=== PATIENT | female | born 1985 | race Caucasian/White ===

== ENCOUNTER → 2022-02-13 | Outpatient (CLI) | payer OTHER, SELFPAY ==
[2022-02-13 17:43] LABS: Protein, Urine (Random) < 6.0 mg/dL (<11.9)
[2022-02-13 18:00] LABS: Amphetamine Urine VISTA NEGATIVE (<1000 ng/mL); Barbiturate Urine VISTA NEGATIVE (< 200 ng/mL); Benzodiazepine Urine VISTA NEGATIVE (< 200 ng/mL); Cocaine Urine VISTA NEGATIVE (< 300 ng/mL); Ecstacy Urine VISTA NEGATIVE (< 500 ng/mL); Methadone Urine VISTA NEGATIVE (< 300 ng/mL); PCP Urine VISTA NEGATIVE (< 25 ng/mL); THC Urine VISTA NEGATIVE (< 50 ng/mL); Vista UDS pH Range 6
[2022-02-17 01:07] LABS: Chlamydia By Nucleic Acid AMP Negative (Negative)
[2022-02-17 13:28] LABS: Gonococcus By Nucleic Acid AMP Negative (Negative)
== END | disposition home or self-care (01) ==
LOC: LABSPEC 16:52
PROVIDERS: PCP Family Medicine; Referring Provider Obstetrics & Gynecology; Visit Provider Obstetrics & Gynecology
DX: O09.299 Supervision of pregnancy with other poor reproductive or obstetric history, unspecified trimester (principal)
CPT/HCPCS: 80307; 82570; 84156; 87086; 87491; 87591

== ENCOUNTER → 2022-03-03 | Outpatient (CLI) | payer OTHER, SELFPAY ==
[2022-03-03 16:16] LABS: Absolute Lymphocyte Count 2.06 X10^3/uL (0.83-4.51); Basophil# 0.03 X10^3/uL; Basophil% 0.4 % (0-1); Eosinophil# 0.11 X10^3/uL; Eosinophils% 1.4 % (0-5); Hematocrit 36.3 % (37-47); Hemoglobin 12.4 g/dL (12.0-15.0); Lymphocyte # 2.06 X10^3/ul (0.83-4.51); Lymphocyte % 26.6 % (19-41); Mean Corp Hgb Conc 34.2 g/dL (32-36); Mean Corpuscular Hgb 31.3 pg (27.0-32.0); Mean Corpuscular Volume 91.7 fL (81-99); Mean Platelet Vol. 9.7 fl (6.2-12.0); Monocyte% 6.5 % (0-10); NRBC Flagged by Analyzer 0 % (0-5); Neutrophil # 5.02 X10^3/uL (2.7-7.7); Neutrophil % 64.7 % (47-70); Platelet Count 273 K/mm3 (150-450); RBC Distribution Width CV 12.6 % (11.6-14.6); RBC Distribution Width SD 41.7 fl (35.1-43.9); Red Blood Count 3.96 M/mm3 (4.2-5.4); White Blood Count 7.8 K/mm3 (4.4-11.0)
[2022-03-03 17:02] LABS: NATERA MAILED SPECIMEN
[2022-03-03 18:24] LABS: HIV - WCH Non-Reactive (Nonreactive); Hepatitis B Surface Antigen Non-Reactive (Nonreactive); Hepatitis C Antibody Non-Reactive (Nonreactive); Rubella IgG Reactive (Nonreactive); Syphilis Antibodies Non-reactive
== END | disposition home or self-care (01) ==
LOC: PAVLAB 15:51
PROVIDERS: PCP Family Medicine; Referring Provider Obstetrics & Gynecology; Visit Provider Obstetrics & Gynecology
DX: O09.90 Supervision of high risk pregnancy, unspecified, unspecified trimester (principal)
CPT/HCPCS: 36415; 85025; 86703; 86762; 86780; 86803; 86850; 86900; 86901; 87340

== ENCOUNTER → 2022-06-27 | Outpatient (CLI) | payer OTHER, SELFPAY ==
[2022-06-27 15:42] LABS: Absolute Lymphocyte Count 0.86 X10^3/uL (0.83-4.51); Absolute Neutrophil Count 11.6 X10^3/uL (2.0-7.7); Basophil# 0.03 X10^3/uL; Basophil% 0.2 % (0-1); Eosinophil# 0.01 X10^3/uL; Eosinophils% 0.1 % (0-5); Hematocrit 34.2 % (37-47); Hemoglobin 11.2 g/dL (12.0-15.0); Lymphocyte # 0.86 X10^3/ul (0.83-4.51); Lymphocyte % 6.7 % (19-41); Mean Corp Hgb Conc 32.7 g/dL (32-36); Mean Corpuscular Hgb 30.4 pg (27.0-32.0); Mean Corpuscular Volume 92.9 fL (81-99); Mean Platelet Vol. 10.7 fl (6.2-12.0); Monocyte# 0.23 X10^3/uL; Monocyte% 1.8 % (0-10); NRBC Flagged by Analyzer 0 % (0-5); Neutrophil # 11.56 X10^3/uL (2.7-7.7); Platelet Count 250 K/mm3 (150-450); RBC Distribution Width CV 13.2 % (11.6-14.6); RBC Distribution Width SD 45.2 fl (35.1-43.9); Red Blood Count 3.68 M/mm3 (4.2-5.4); White Blood Count 12.8 K/mm3 (4.4-11.0)
[2022-06-27 15:53] LABS: Glucose Challenge Gest 1H 50g 112 mg/dL (70-140)
== END | disposition home or self-care (01) ==
LOC: LAB 14:15
PROVIDERS: Obstetrics & Gynecology; PCP Family Medicine; Referring Provider Obstetrics & Gynecology; Visit Provider Obstetrics & Gynecology
DX: O09.90 Supervision of high risk pregnancy, unspecified, unspecified trimester (principal); Z3A.00 Weeks of gestation of pregnancy not specified
CPT/HCPCS: 36415; 82950; 85025

== ENCOUNTER 2022-08-01 11:40 | Outpatient (CLI) | payer OTHER, SELFPAY ==
[2022-08-01 11:47] VITALS: BMI 26.9
[2022-08-01 12:00] VITALS: TEMP 36.4
[2022-08-01] MEDS: Betamethasone/Betamethasone 30 MG/5 ML Vial 12 MG IM (12:10)
--- NOTE | 2022-08-01 12:19 | US_ITS ---
STUDY: SECOND AND THIRD TRIMESTER OBSTETRICAL ULTRASOUND - LIMITED REASON FOR EXAM: Female, 36 years old hypertension in LMP: Unknown. PRIOR ULTRASOUND: None. TECHNIQUE: Transabdominal TECHNICAL QUALITY: Adequate. FINDINGS: There is a single intrauterine fetus. The fetus is in a cephalic presentation. There is demonstrated cardiac activity with a heart rate of 148 bpm. There is a normal amniotic fluid volume. The largest amniotic fluid pocket measures 6.3 cm. The amniotic fluid index (ANNIKA) is 17.03 cm. The placenta is anterior in location and is not low lying. There are Grade 1 placental changes. The cervix measures 4.1 cm in length. BIOMETRY: BPD: 8.8 cm: 35 weeks, 4 days HC: 31.88 cm: 35 weeks, 6 days AC: 29.99 cm: 34 weeks, 0 days FL: 6.43 cm: 33 weeks, 2 days Age by LMP: 32 weeks, 4 days. NATALEE by LMP: 09/22/2022 age by current US: 34 weeks, 5 days. NATALEE by current US: 09/07/2022. Estimated weight: 2355 grams, +/- 353 grams, 84.75 percentile. US/OB Limited With Biometrics IMPRESSION: Single live intrauterine at 34 weeks, 5 days by current ultrasound with NATALEE of 09/07/2022. Heart rate of 148 bpm. No suspicious sonographic findings Electronically Signed: Bennie Will MD at 13:25 EDT ,
[2022-08-01 12:22] VITALS: BP 138/94; PULSE 86
[2022-08-01 12:34] LABS: Bacteria 0 SEEN /hpf (None Seen); Mucous, Urine 0 SEEN /hpf (<or=2+); Red Blood Cells-Urine 0 SEEN /hpf (0-5); White Blood Cells 0 SEEN /hpf (0-5)
[2022-08-01 12:38] LABS: Hematocrit 36.4 % (37-47); Hemoglobin 11.9 g/dL (12.0-15.0); Mean Corp Hgb Conc 32.7 g/dL (32-36); Mean Corpuscular Hgb 29.9 pg (27.0-32.0); Mean Corpuscular Volume 91.5 fL (81-99); Mean Platelet Vol. 11.1 fl (6.2-12.0); Platelet Count 233 K/mm3 (150-450); RBC Distribution Width CV 13.3 % (11.6-14.6); RBC Distribution Width SD 44.9 fl (35.1-43.9); Red Blood Count 3.98 M/mm3 (4.2-5.4); White Blood Count 11.5 K/mm3 (4.4-11.0)
[2022-08-01 12:47] LABS: Protein, Urine (Random) < 6.0 mg/dL (<11.9); Protein:Creat Ratio 234 mg/g CRE (0-200)
[2022-08-01 12:48] LABS: AST(SGOT) 12 U/L (15-37); Alanine Aminotransfer ALT/SGPT 17 U/L (13-56); Creatinine, Serum 0.63 mg/dL (0.55-1.02); EST Glomerular Filtration Rate 115 mL/min (>60); Est Glom Filt Rate - Afr Amer 139 mL/min (>60); Estimated Creatinine Clearance 122.36 ml/min; Uric Acid 3.8 mg/dL (2.6-6.0)
[2022-08-01 12:50] LABS: Color, Urine Yellow (Yellow); Glucose, Dipstick Normal (Normal); Ketone-Dipstick Negative (Negative); Leukocyte Esterase-Dipstick Negative /ul (Negative); Nitrite-Dipstick Negative (Negative); Occult Blood-Urine Negative /ul (Negative); Protein-Dipstick Negative (Negative); Urine Bilirubin Dipstick Negative (Negative); Urine Clarity Clear (Clear); Urine Urobilinogen Normal (Normal); Urine pH 6.5 (5.0 - 8.0)
[2022-08-01 12:59] LABS: Squamous Epithelial Cells - UA 0-5 SEEN /hpf (5-10)
--- NOTE | 2022-08-01 13:10 | OB.TRI.HP_ITS ---
HPI - General General Date of Admission: 08/01/22 HPI Narrative BURTON BENJAMIN, is a 36 y/o @ 32 weeks who presents to L&D for PIH work up. She states that she feels fuzzy but no visual changes, epigastric pain, shortness of breath or chest pain. She had a home blood pressure read in the severe range and was monitoring due to a history of pre-e at 39 weeks with her first . Maternal Data Information NATALEE Calculator Estimated Delivery Date Method Current WG Current Estimate 09/22/22 LMP (Certain) 32w 4d PFSH [facility] Medical History History of breast lump Home Medications fluticasone propionate 50 mcg/actuation nasal spray,suspension (Flonase Allergy Relief) 1 spray intranasal DAILY 02/12/22 [History Last Taken Unknown] prenat.vits,layton,kyt-dnwb-pukit 1 tab PO DAILY 02/12/22 [History Last Taken Unknown] aspirin 81 mg chewable tablet 81 mg PO DAILY 03/14/22 [History Last Taken Unknown] Allergy/AdvReac Type Severity Reaction Status Date / Time Penicillins Allergy Intermediate hives Verified 08/01/22 12:33 Family History Father CAD (coronary artery disease) Brother Hypercholesterolemia Grandmother Diabetes Breast cancer Heart disease Hypertension Grandmother Breast cancer CML (chronic myelocytic leukemia) Cancer small cell lung CA Mother Colon cancer rectum Rectal cancer Grandfather Alzheimer's dementia Heart disease Surgical History History of removal of skin mole S/P laparoscopic procedure Social History adopted: No household members: spouse number of children: 1 current occupational status: employed 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 Date Name GA/Weeks Outcome Route Bth Weight Gen Labor Lgth Anesthesia Del Locatn Provider FOB Unknown 10/2014 SAB spontaneous Unknown 01/09/2016 Ronda Figueroa live - full term vacuum 7# 8oz Female 15 hr epidural Pomerene Ramirez Scar Figueora Delivery Date: Last Updated by: Coty Pritchard CONSTRUCTION PROJECT ENGINEER, CONSTRUCTION PROJECT ENGINEER-C no intervention Delivery Date: Last Updated by: Coty Pritchard CONSTRUCTION PROJECT ENGINEER, CONSTRUCTION PROJECT ENGINEER-C IOL, episiotomy X 2; Pre E, on mag. Visit Details Expected Delivery Route/Plan Labor Preferences- CB/BF classes: [] labor support person: [] labor intervention preferences: [] pain management options preferred: [] cut cord/dad catch: [] : [] PP control planned: [] discussed possible routes of delivery and associated risks: [] special requests: [] Plans Covid status: discussed Flu vaccine: discussed Tdap vaccine: given Rhogam: na LARC form signed: movement and labor precautions reviewed. Problem list reviewed and updated with the most current plan of care details and appropriate orders placed. Relevant counseling for the gestational age provided. Continue routine care and follow up unless otherwise noted in visit notes/problem list details OB Flowsheet Initial Weight: Not Recorded Date -?-?-?-?-?-?-?-?-?-?-?-?- EGA Weight BP Urine Prot -?-?-?-?-?-?-?-?-?-?-?-?- Glucose FHR FuHt Pres Dilation -?-?-?-?-?-?-?-?-?-?-?-?- Effaced St Visit Note 02/13/22 -?-?-?-?-?-?-?-?-?-?-?-?- 8w 3d 154 lb 130/80 -?-?-?-?-?-?-?-?-?-?-?-?- 160 -?-?-?-?-?-?-?-?-?-?-?-?- JV- CRL consiste nt with LMP 03/14/22 -?-?-?-?-?-?-?-?-?-?-?-?- 12w 4d 155 lb 114/60 Negative -?-?-?-?-?-?-?-?-?-?-?-?- Negative 150 -?-?-?-?-?-?-?-?-?-?-?-?- Sm- no vb crampi ng. 04/11/22 -?-?-?-?-?-?-?-?-?-?-?-?- 16w 4d 154 lb 6 oz 130/88 Nega tive -?-?-?-?-?-?-?-?-?-?-?-?- Negative 150 -?-?-?-?-?-?-?-?-?-?-?-?- JV- pt had covid last couple of weeks 05/16/22 -?-?-?-?-?-?-?-?-?-?-?-?- 21w 4d 160 lb 4 oz 118/79 Nega tive -?-?-?-?-?-?-?-?-?-?-?-?- Negative 145 -?-?-?-?-?-?-?-?-?-?-?-?- JV- no lof, v ag inal bleeding, or cramping. had nose bleed recently and thinks may be from flonase. 06/13/22 -?-?-?-?-?-?-?-?-?-?-?-?- 25w 4d 163 lb 102/66 Negative -?-?-?-?-?-?-?-?-?-?-?-?- Negative 145 -?-?-?-?-?-?-?-?-?-?-?-?- JV- no lof, vagi nal bleeding, or dec fm. no complaints 06/27/22 -?-?-?-?-?-?-?-?-?-?-?-?- 27w 4d 168 lb 132/79 Negative -?-?-?-?-?--?-?-?-?-?-?-?- Negative 145 28 -?-?-?-?-?-?-?-?-?-?-?-?- SM- no vb lof go od fm no regular ctx cbc gct today 07/18/22 -?-?-?-?-?-?-?-?-?-?-?-?- 30w 4d 171 lb 122/81 -?-?-?-?-?-?-?-?-?-?-?-?- 140 31 -?-?-?-?-?-?-?-?-?-?-?-?- SM- no vb lof go od fm no regular ctx 08/01/22 -?-?-?-?-?-?-?-?-?-?-?-?- 32w 4d 173 lb 2 oz Negative -?-?-?-?-?-?-?-?-?-?-?-?- Negative -?-?-?-?-?-?-?-?-?-?-?-?- Lc- pt presents with elevated BP at home, facial swelling, fuzzy brain and overall not well feeling. BP in office 162/102. with decreased FM. pt sent directly down to L&D for PEC work up, celestone and IV per Dr. Mcallister. pt transported in w/c down ROS Constitutional Constitutional: Reports systems reviewed and no addt'l complaints, except as documented Gastrointestinal Gastrointestinal: Denies bloating, constipation, cramping, diarrhea, nausea or vomiting Genitourinary Genitourinary: Reports other Details: Denies vaginal odor, vaginal bleeding, or vaginal discharge ; Denies difficulty urinating or flank pain Physical Exam HEENT normocephalic Resp normal respiratory effort and normal air movement no CVA tenderness Extremity normal to inspection General Extremity: edema bilateral (trace ) NST FHR Rate Baby A Baseline: 140 Variability:: Moderate Accelerations:: 15 x 15 Decelerations:: None NST Reactive:: Yes FHR Category:: Category I Assessment & Plan (1) Hypertension affecting in third trimester: COMMENT: PEC work up 08/01 (2) Supervision of high risk , antepartum: COMMENT: PRR NATALEE:09/22/22, girl, Stella Dale PC:Ronda. Sp: Scar Figueroa (3) : QUALIFIERS: Weeks of gestation: 30 weeks Qualified Code(s): Z3A.30 - 30 weeks gestation of COMMENT: declined carrier and ntd screen. NIPT low risk (4) History of pre-eclampsia in prior , currently : COMMENT: On mag during labor. Pre E labs at [facility]B, P/C negative. baby ASA. PLAN: Plan work up at this point shows absence of proteinuria and PIH labs are normal. blood pressure is not in the severe range. Growth ultrasound ordered plan for outpatient monitoring and 24 hr urine at home. Charges/Coding Multi Select Codes Visit Charges Office Visit/Consults: 41448 OV L3 Est Urinary/Genital Urinary/Genital CPT Codes: 98666-64 non-stress test Interp
[2022-08-01 13:35] VITALS: BP 134/83; PULSE 81
[2022-08-01 13:50] VITALS: BP 129/81; PULSE 79
[2022-08-01 14:05] VITALS: BP 127/80; PULSE 89
--- NOTE | 2022-08-02 12:16 | PN.OBGYN_ITS ---
Objective Data Objective Data pt seen in office with elevated BP, fuzzy headache and unwell feeling. sent to L&D for prolonged monitoring and PEC labs Vital Signs: Vital Signs Temp Pulse BP 97.5 F L 89 127/80 H 08/01/22 12:00 08/01/22 14:05 08/01/22 14:05 Weight: 172 lb Body Mass Index (BMI) 26.9 Lab / Micro Data Attestation: I reviewed the patient's lab results. Result Diagrams: 08/01/22 12:20 08/01/22 12:20 Labs: Laboratory Results - last 24 hr 08/01/22 12:20: WBC 11.5 H, RBC 3.98 L, Hgb 11.9 L, Hct 36.4 L, MCV 91.5, MCH 29.9, MCHC 32.7, RDW Std Deviation 44.9 H, RDW Coeff of Brice 13.3, Plt Count 233, MPV 11.1 08/01/22 12:20: U Random Total Protein < 6.0, Urine Creatinine 23.10, Protein/Creatinin Ratio 234 H 08/01/22 12:20: Creatinine 0.63, Estim Creat Clear Calc 122.36, Est GFR (MDRD) Af Amer 139, Est GFR (MDRD) Non-Af 115, Uric Acid 3.8, AST 12 L, ALT 17 08/01/22 12:20: Urine Color Yellow, Urine Clarity Clear, Urine pH 6.5, Ur Specific [place] 1.010, Urine Protein Negative, Urine Glucose (UA) Normal, Urine Ketones Negative, Urine Occult Blood Negative, Urine Nitrite Negative, Urine Bilirubin Negative, Urine Urobilinogen Normal, Ur Leukocyte Esterase Negative, Urine RBC 0 SEEN, Urine WBC 0 SEEN, Ur Squamous Epith Cells 0-5 SEEN, Urine Bacteria 0 SEEN, Urine Mucus 0 SEEN Radiography Diagnostic Testing: Radiology Impression Obstetrics Ultrasound 08/01/22 12:19 IMPRESSION: Single live intrauterine at 34 weeks, 5 days by current ultrasound with NATALEE of 09/07/2022. Heart rate of 148 bpm. No suspicious sonographic findings Electronically Signed: Bennie Will MD at 13:25 EDT , NST FHR Rate Baby A Baseline: 140 Variability:: Moderate Accelerations:: 15 x 15 Decelerations:: None NST Reactive:: Yes FHR Category:: Category I FHR Rate Baby B Uterine Activity:: not rené Assessment & Plan (1) Hypertension affecting in third trimester: COMMENT: PEC work up 08/01 PLAN: negative work up 24 hour urine growth scan obtained in house-EFW 2355g outpatient f/u. will monitor BP at home BID, parameters reviewed of when to call (2) Supervision of high risk , antepartum: COMMENT: PRR NATALEE:09/22/22, girl, Stella Dale PC:Ronda. Sp: Scar Figueroa (3) : QUALIFIERS: Weeks of gestation: 30 weeks Qualified Code(s): Z3A.30 - 30 weeks gestation of COMMENT: declined carrier and ntd screen. NIPT low risk (4) History of pre-eclampsia in prior , currently : COMMENT: On mag during labor. Pre E labs at NOB, P/C negative. baby ASA. Charges/Coding Multi Select Codes Urinary/Genital Urinary/Genital CPT Codes: 20109-18 non-stress test Interp
[2022-08-02 14:38] LABS: 24HR. UA Prot. Total Volume 4325 mL
[2022-08-02 14:39] LABS: Urine Protein (24 Hour) < 6.0 mg/dL (<11.9)
== END 2022-08-01 14:15 | disposition home or self-care (01) ==
LOC: WPOUT 11:46 → WP 11:46
PROVIDERS: Obstetrics & Gynecology; PCP Family Medicine; Visit Provider Registered Nurse
DX: O16.3 Unspecified maternal hypertension, third trimester (principal); Z3A.32 32 weeks gestation of pregnancy
CPT/HCPCS: 36415; 59025; 59050; 76816; 81001; 82565; 82570; 84156; 84450; 84460; 84550; 85027; 96372; J0702

== ENCOUNTER 2022-08-02 14:25 | Outpatient (CLI) | payer OTHER, SELFPAY ==
[2022-08-02 14:32] VITALS: BMI 27.1
[2022-08-02 14:34] VITALS: BP 120/71; PULSE 87; TEMP 36.7
[2022-08-02] MEDS: Betamethasone/Betamethasone 30 MG/5 ML Vial 12 MG IM (15:01)
--- NOTE | 2022-08-04 08:36 | PCM.CONS.B ---
Consult Date of Consult: 08/04/22 Reason for Consult pt seen 08/01/22 for Celestone injection only for GHTN. sent home in stable condition.
== END 2022-08-02 15:05 | disposition home or self-care (01) ==
LOC: WPOUT 14:29 → WP 14:30
PROVIDERS: PCP Family Medicine; Visit Provider Registered Nurse
DX: O13.9 Gestational [pregnancy-induced] hypertension without significant proteinuria, unspecified trimester (principal); Z3A.00 Weeks of gestation of pregnancy not specified; Z23 Encounter for immunization
CPT/HCPCS: 96372; 99218; G0378; J0702

== ENCOUNTER 2022-08-05 10:54 | Outpatient (CLI) | payer OTHER, SELFPAY ==
[2022-08-05] VITALS (13 sets, daily range): BP systolic 120–151; BP diastolic 73–97; PULSE 66–88; TEMP 36.7; O2SAT 99–100; BMI 26.9
[2022-08-05 12:05] LABS: Hematocrit 36.3 % (37-47); Hemoglobin 11.8 g/dL (12.0-15.0); Mean Corp Hgb Conc 32.5 g/dL (32-36); Mean Corpuscular Hgb 29.7 pg (27.0-32.0); Mean Corpuscular Volume 91.4 fL (81-99); Mean Platelet Vol. 11.1 fl (6.2-12.0); Platelet Count 251 K/mm3 (150-450); RBC Distribution Width CV 13.3 % (11.6-14.6); RBC Distribution Width SD 45.1 fl (35.1-43.9); Red Blood Count 3.97 M/mm3 (4.2-5.4); White Blood Count 12.7 K/mm3 (4.4-11.0)
[2022-08-05 12:29] LABS: Protein, Urine (Random) < 6.0 mg/dL (<11.9)
[2022-08-05 12:59] LABS: AST(SGOT) 13 U/L (15-37); Alanine Aminotransfer ALT/SGPT 14 U/L (13-56); Creatinine, Serum 0.55 mg/dL (0.55-1.02); EST Glomerular Filtration Rate 134 mL/min (>60); Est Glom Filt Rate - Afr Amer 162 mL/min (>60); Estimated Creatinine Clearance 140.16 ml/min; Uric Acid 3.5 mg/dL (2.6-6.0)
--- NOTE | 2022-08-05 18:30 | OB.TRI.HP_ITS ---
HPI - General General Date of Admission: 08/05/22 Date of Service: 08/05/22 HPI Narrative BURTON BENJAMIN, is a 36 F who presents @ 33 weeks gestation who was sent to L&D to rule out pre-eclampsia. her blood pressures were elevated in the office. She has occasional headaches from time to time, none today. Maternal Data Information NATALEE Calculator Estimated Delivery Date Method Current WG Current Estimate 09/22/22 LMP (Certain) 35w 0d PFSH PFSH Medical History History of breast lump Home Medications fluticasone propionate 50 mcg/actuation nasal spray,suspension (Flonase Allergy Relief) 1 spray intranasal DAILY see provider 02/12/22 [History Last Taken 08/06/22 08:00] prenat.vits,layton,azw-liii-ixkeb 1 tab PO DAILY 02/12/22 [History Last Taken 08/06/22 08:00] hydroxyzine pamoate 50 mg capsule (Vistaril) 50 mg PO DAILY see provider 08/09/22 [History Last Taken 08/08/22 22:00] Allergy/AdvReac Type Severity Reaction Status Date / Time Penicillins Allergy Intermediate hives Verified 08/09/22 21:45 Family History Father CAD (coronary artery disease) Brother Hypercholesterolemia Grandmother Diabetes Breast cancer Heart disease Hypertension Grandmother Breast cancer CML (chronic myelocytic leukemia) Cancer small cell lung CA Mother Colon cancer rectum Rectal cancer Grandfather Alzheimer's dementia Heart disease Surgical History History of removal of skin mole S/P laparoscopic procedure Social History adopted: No household members: spouse number of children: 1 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 Date Name GA/Weeks Outcome Route Bth Weight Gen Labor Lgth Anesthesia Del Locatn Provider FOB Unknown 10/2014 SAB spontaneous Unknown 01/09/2016 Ronda Figueroa live - full term vacuum 7# 8oz Female 15 hr epidural Pomerene Ramirezsushma Figueroa Delivery Date: Last Updated by: Coty Pritchard ROUGH CARPENTER, ROUGH CARPENTER-C no intervention Delivery Date: Last Updated by: Coty Pritchard ROUGH CARPENTER, ROUGH CARPENTER-C IOL, episiotomy X 2; Pre E, on mag. Visit Details Expected Delivery Route/Plan Labor Preferences- CB/BF classes: [] labor support person: [] labor intervention preferences: [] pain management options preferred: [] cut cord/dad catch: [] : [] PP control planned: [] discussed possible routes of delivery and associated risks: [] special requests: [] Plans Covid status: discussed Flu vaccine: discussed Tdap vaccine: given Rhogam: na LARC form signed: movement and labor precautions reviewed. Problem list reviewed and updated with the most current plan of care details and appropriate orders placed. Relevant counseling for the gestational age provided. Continue routine care and follow up unless otherwise noted in visit notes/problem list details OB Flowsheet Initial Weight: Not Recorded Date -?-?-?-?-?-?-?-?-?-?-?-?- EGA Weight BP Urine Prot -?-?-?-?-?-?-?-?-?-?-?-?- Glucose FHR FuHt Pres Dilation -?-?-?-?-?-?-?-?-?-?-?-?- Effaced St Visit Note 02/13/22 -?-?-?-?-?-?-?-?-?-?-?-?- 8w 3d 154 lb 130/80 -?-?-?-?-?-?-?-?-?-?-?-?- 160 -?-?-?-?-?-?-?-?-?-?-?-?- JV- CRL consiste nt with LMP 03/14/22 -?-?-?-?-?-?-?-?-?-?-?-?- 12w 4d 155 lb 114/60 Negative -?-?-?-?-?-?-?-?-?-?-?-?- Negative 150 -?-?-?-?-?-?-?-?-?-?-?-?- Sm- no vb crampi ng. 04/11/22 -?-?-?-?-?-?-?-?-?-?-?-?- 16w 4d 154 lb 6 oz 130/88 Nega tive -?-?-?-?-?-?-?-?-?-?-?-?- Negative 150 -?-?-?-?-?-?-?-?-?-?-?-?- JV- pt had covid last couple of weeks 05/16/22 -?-?-?-?-?-?-?-?-?-?-?-?- 21w 4d 160 lb 4 oz 118/79 Nega tive -?-?-?-?-?-?-?-?-?-?-?-?- Negative 145 -?-?-?-?-?-?-?-?-?-?-?-?- JV- no lof, v ag inal bleeding, or cramping. had nose bleed recently and thinks may be from flonase. 06/13/22 -?-?-?-?-?-?-?-?-?-?-?-?- 25w 4d 163 lb 102/66 Negative -?-?-?-?-?-?-?-?-?-?-?-?- Negative 145 -?-?-?-?--?-?-?-?-?-?-?-?- JV- no lof, vagi nal bleeding, or dec fm. no complaints 06/27/22 -?-?-?-?-?-?-?-?-?-?-?-?- 27w 4d 168 lb 132/79 Negative -?-?-?-?-?-?-?-?-?--?-?-?- Negative 145 28 -?-?-?-?-?-?-?-?-?-?-?-?- SM- no vb lof go od fm no regular ctx cbc gct today 07/18/22 -?-?-?-?-?-?-?-?-?-?-?-?- 30w 4d 171 lb 122/81 -?-?-?-?-?-?-?-?-?-?-?-?- 140 31 -?-?-?-?-?-?-?-?-?-?-?-?- SM- no vb lof go od fm no regular ctx 08/01/22 -?-?-?-?-?-?-?-?-?-?-?-?- 32w 4d 173 lb 2 oz Negative -?-?-?-?-?-?-?-?-?-?-?-?- Negative -?-?-?-?-?-?-?-?-?-?-?-?- Lc- pt presents with elevated BP at home, facial swelling, fuzzy brain and overall not well feeling. BP in office 162/102. with decreased FM. pt sent directly down to L&D for PEC work up, celestone and IV per Dr. Mcallister. pt transported in w/c down 08/15/22 -?-?-?-?-?-?-?-?-?-?-?-?- 34w 4d 176 lb 126/84 -?-?-?-?-?-?-?-?-?-?-?-?- 140 -?-?-?-?-?-?-?-?-?-?-?-?- SM- no vb lof go od fm no regular ctx no ROBLEDO BV persistent bps nl to mildly elevated at home ROS Constitutional Constitutional: Reports systems reviewed and no addt'l complaints, except as documented Gastrointestinal Gastrointestinal: Denies bloating, constipation, cramping, diarrhea, nausea or vomiting Genitourinary Genitourinary: Reports other Details: Denies vaginal odor, vaginal bleeding, or vaginal discharge ; Denies difficulty urinating or flank pain Physical Exam HEENT normocephalic Resp normal respiratory effort and normal air movement no CVA tenderness Extremity normal to inspection General Extremity: edema bilateral (trace ) NST FHR Rate Baby A Baseline: 140 Variability:: Moderate Accelerations:: 15 x 15 and 10 x 10 Decelerations:: None NST Reactive:: Yes FHR Category:: Category I Assessment & Plan (1) : QUALIFIERS: Weeks of gestation: 34 weeks Qualified Code(s): Z3A.34 - 34 weeks gestation of COMMENT: declined carrier and ntd screen. NIPT low risk (2) History of pre-eclampsia in prior , currently : COMMENT: On mag during labor. Pre E labs at NOB, P/C negative. baby ASA. PLAN: Plan sending home with a monitor for close bp recording. pRe-e precautions discussed. Charges/Coding Multi Select Codes Visit Charges Office Visit/Consults: 13840 OV L3 Est Urinary/Genital Urinary/Genital CPT Codes: 51880-68 non-stress test Interp
== END 2022-08-05 14:20 | disposition home or self-care (01) ==
LOC: WPOUT 11:03 → WP 11:04
PROVIDERS: PCP Family Medicine; Referring Provider Obstetrics & Gynecology; Visit Provider Obstetrics & Gynecology
DX: O26.893 Other specified pregnancy related conditions, third trimester (principal); R03.0 Elevated blood-pressure reading, without diagnosis of hypertension; Z3A.35 35 weeks gestation of pregnancy
CPT/HCPCS: 36415; 59025; 59050; 82565; 82570; 84156; 84450; 84460; 84550; 85027

== ENCOUNTER 2022-08-09 21:29 | Outpatient (CLI) | payer OTHER, SELFPAY ==
[2022-08-09 21:44] VITALS: BMI 27.2
[2022-08-09 21:55] VITALS: TEMP 36.7; O2SAT 96
[2022-08-09 21:56] VITALS: BP 146/89; PULSE 86
[2022-08-09] MEDS: 0.9 % NaCl (Sterile) Posiflush 10 mL IV (22:05)
[2022-08-09 22:10] VITALS: BP 134/84; PULSE 107
[2022-08-09 22:15] LABS: Bacteria 0 SEEN /hpf (None Seen); Mucous, Urine 0 SEEN /hpf (<or=2+); Red Blood Cells-Urine 0 SEEN /hpf (0-5); Squamous Epithelial Cells - UA 0 SEEN /hpf (5-10); White Blood Cells 0 SEEN /hpf (0-5)
[2022-08-09 22:17] LABS: Color, Urine Straw (Yellow); Glucose, Dipstick Normal (Normal); Ketone-Dipstick Negative (Negative); Leukocyte Esterase-Dipstick Negative /ul (Negative); Nitrite-Dipstick Negative (Negative); Occult Blood-Urine Negative /ul (Negative); Protein-Dipstick Negative (Negative); Urine Bilirubin Dipstick Negative (Negative); Urine Clarity Clear (Clear); Urine Urobilinogen Normal (Normal); Urine pH 6.5 (5.0 - 8.0)
[2022-08-09 22:23] LABS: Hematocrit 34.6 % (37-47); Hemoglobin 11.9 g/dL (12.0-15.0); Mean Corp Hgb Conc 34.4 g/dL (32-36); Mean Corpuscular Hgb 30.5 pg (27.0-32.0); Mean Corpuscular Volume 88.7 fL (81-99); Mean Platelet Vol. 10.9 fl (6.2-12.0); Platelet Count 256 K/mm3 (150-450); RBC Distribution Width CV 13.2 % (11.6-14.6); RBC Distribution Width SD 42.5 fl (35.1-43.9)
[2022-08-09 22:25] VITALS: BP 120/79; PULSE 106
[2022-08-09 22:27] LABS: Prothrombin Time (Protime)PT. 12.6 SECONDS (11.7-14.9)
[2022-08-09 22:28] LABS: Partial Thromboplast Time 24.9 Seconds (24.1-36.2)
[2022-08-09] MEDS: Acetaminophen 500 MG Tablet 1000 MG PO (22:28)
[2022-08-09 22:30] LABS: Protein, Urine (Random) < 6.0 mg/dL (<11.9)
[2022-08-09 22:31] LABS: AST(SGOT) 10 U/L (15-37); Alanine Aminotransfer ALT/SGPT 14 U/L (13-56); Creatinine, Serum 0.59 mg/dL (0.55-1.02); EST Glomerular Filtration Rate 123 mL/min (>60); Est Glom Filt Rate - Afr Amer 148 mL/min (>60); Estimated Creatinine Clearance 130.65 ml/min; LDH 139 U/L (84-246); Uric Acid 3.8 mg/dL (2.6-6.0)
[2022-08-09 22:41] VITALS: BP 118/83; PULSE 94
--- NOTE | 2022-08-14 18:37 | OB.TRI.PN ---
Progress Notes Date of Service: 08/09/22 Progress Note: Patient presents for triage evaluation secondary to elevateed bp FHT: 140 Moderate variability reactive no decelerations category I tracing [place]: no regular Contractions Assessment and plan: elevated blood pressure Reactive NST, reassuring maternal and status patient discharged to home to follow-up as scheduled. See problem list details for additional plan information. Laboratory Studies: Laboratory Tests 08/09/22 08/09/22 08/09/22 Range/Units 22:05 22:05 22:05 WBC (4.4-11.0) K/mm3 RBC (4.2-5.4) M/mm3 Hgb (12.0-15.0) g/dL Hct (37-47) % MCV (81-99) fL MCH (27.0-32.0) pg MCHC (32-36) g/dL RDW Std Deviation (35.1-43.9) fl RDW Coeff of Brice (11.6-14.6) % Plt Count (150-450) K/mm3 MPV (6.2-12.0) fl PT 12.6 (11.7-14.9) SECONDS INR 1.0 APTT 24.9 (24.1-36.2) Seconds Creatinine (0.55-1.02) mg/dL Estim Creat Clear Calc ml/min Est GFR (MDRD) Af Amer (>60) mL/min Est GFR (MDRD) Non-Af (>60) mL/min Uric Acid (2.6-6.0) mg/dL AST (15-37) U/L ALT (13-56) U/L Lactate Dehydrogenase (84-246) U/L Urine Color Straw (Yellow) Urine Clarity Clear (Clear) Urine pH 6.5 (5.0 - 8.0) Ur Specific [place] 1.020 (1.002-1.030) Urine Protein Negative (Negative) mg/dl Urine Glucose (UA) Normal (Normal) mg/dl Urine Ketones Negative (Negative) mg/dl Urine Occult Blood Negative (Negative) /ul Urine Nitrite Negative (Negative) Urine Bilirubin Negative (Negative) mg/dL Urine Urobilinogen Normal (Normal) mg/dl Ur Leukocyte Esterase Negative (Negative) /ul Urine RBC 0 SEEN (0-5) /hpf Urine WBC 0 SEEN (0-5) /hpf Ur Squamous Epith Cells 0 SEEN (5-10) /hpf Urine Bacteria 0 SEEN (None Seen) /hpf Urine Mucus 0 SEEN (<or=2+) /hpf U Random Total Protein (<11.9) mg/dL Urine Creatinine (NO RANGE EST.) mg/dL Protein/Creatinin Ratio Blood Type A POSITIVE Antibody Screen NEGATIVE 08/09/22 08/09/22 08/09/22 Range/Units 22:05 22:05 22:05 WBC 12.0 H (4.4-11.0) K/mm3 RBC 3.90 L (4.2-5.4) M/mm3 Hgb 11.9 L (12.0-15.0) g/dL Hct 34.6 L (37-47) % MCV 88.7 (81-99) fL MCH 30.5 (27.0-32.0) pg MCHC 34.4 D (32-36) g/dL RDW Std Deviation 42.5 (35.1-43.9) fl RDW Coeff of Brice 13.2 (11.6-14.6) % Plt Count 256 (150-450) K/mm3 MPV 10.9 (6.2-12.0) fl PT (11.7-14.9) SECONDS INR APTT (24.1-36.2) Seconds Creatinine 0.59 (0.55-1.02) mg/dL Estim Creat Clear Calc 130.65 ml/min Est GFR (MDRD) Af Amer 148 (>60) mL/min Est GFR (MDRD) Non-Af 123 (>60) mL/min Uric Acid 3.8 (2.6-6.0) mg/dL AST 10 L (15-37) U/L ALT 14 (13-56) U/L Lactate Dehydrogenase 139 (84-246) U/L Urine Color (Yellow) Urine Clarity (Clear) Urine pH (5.0 - 8.0) Ur Specific [place] (1.002-1.030) Urine Protein (Negative) mg/dl Urine Glucose (UA) (Normal) mg/dl Urine Ketones (Negative) mg/dl Urine Occult Blood (Negative) /ul Urine Nitrite (Negative) Urine Bilirubin (Negative) mg/dL Urine Urobilinogen (Normal) mg/dl Ur Leukocyte Esterase (Negative) /ul Urine RBC (0-5) /hpf Urine WBC (0-5) /hpf Ur Squamous Epith Cells (5-10) /hpf Urine Bacteria (None Seen) /hpf Urine Mucus (<or=2+) /hpf U Random Total Protein < 6.0 (<11.9) mg/dL Urine Creatinine 25.90 (NO RANGE EST.) mg/dL Protein/Creatinin Ratio TNP Blood Type Antibody Screen Charges/Coding Procedures Urinary/Genital 52xxx-59xxx: 41388-88 non-stress test Interp
== END 2022-08-09 22:55 | disposition home or self-care (01) ==
LOC: WPOUT 21:35 → WP 21:35
PROVIDERS: PCP Family Medicine; Visit Provider Obstetrics & Gynecology
DX: O26.899 Other specified pregnancy related conditions, unspecified trimester (principal); R03.0 Elevated blood-pressure reading, without diagnosis of hypertension
CPT/HCPCS: 36415; 59025; 59050; 81001; 82565; 82570; 83615; 84156; 84450; 84460; 84550; 85027; 85610; 85730; 86850; 86900; 86901; 99218; G0378

== ENCOUNTER 2022-08-15 17:00 | Outpatient (CLI) | payer OTHER, SELFPAY ==
[2022-08-15] VITALS (9 sets, daily range): BP systolic 121–143; BP diastolic 79–94; PULSE 86–105; TEMP 36.4; O2SAT 98; BMI 27.2
[2022-08-15 17:56] LABS: Hematocrit 33.5 % (37-47); Hemoglobin 11.3 g/dL (12.0-15.0); Mean Corp Hgb Conc 33.7 g/dL (32-36); Mean Corpuscular Hgb 30.3 pg (27.0-32.0); Mean Corpuscular Volume 89.8 fL (81-99); Mean Platelet Vol. 10.8 fl (6.2-12.0); Platelet Count 213 K/mm3 (150-450); RBC Distribution Width CV 13.4 % (11.6-14.6); Red Blood Count 3.73 M/mm3 (4.2-5.4); White Blood Count 11.5 K/mm3 (4.4-11.0)
[2022-08-15 18:23] LABS: AST(SGOT) 17 U/L (15-37); Alanine Aminotransfer ALT/SGPT 18 U/L (13-56); Creatinine, Serum 0.77 mg/dL (0.55-1.02); EST Glomerular Filtration Rate 91 mL/min (>60); Est Glom Filt Rate - Afr Amer 110 mL/min (>60); Estimated Creatinine Clearance 100.11 ml/min; Uric Acid 4.6 mg/dL (2.6-6.0)
[2022-08-15 18:31] LABS: Protein, Urine (Random) < 6.0 mg/dL (<11.9)
--- NOTE | 2022-08-15 19:55 | OB.TRI.NOTE ---
HPI - General General Date of Admission: 08/15/22 HPI Narrative BURTON BENJAMIN, is a 36 y/o F who presents to L&D from our office to rule out pre-e. She has been given steroids x 2 her last admission and bp's at home are being monitored. She now states that from time to time she has bright floaters in eyes. She denies headaches, ruq pain, nausea, or vomiting. bp's in the office were 160/90, however on L&D with rest the bp's are highest 151/94, but most 120's-140's/ 70's-80's and patient is currently asymptomatic. Her pr:cr ratio is TNP and all PIH labs are normal. Maternal Data Information NATALEE Calculator Estimated Delivery Date Method Current WG Current Estimate 09/22/22 LMP (Certain) 35w 0d PFS PFS Medical History History of breast lump Home Medications fluticasone propionate 50 mcg/actuation nasal spray,suspension (Flonase Allergy Relief) 1 spray intranasal DAILY see provider 02/12/22 [History Last Taken 08/06/22 08:00] prenat.vits,layton,nap-vmnt-hbpwk 1 tab PO DAILY 02/12/22 [History Last Taken 08/06/22 08:00] hydroxyzine pamoate 50 mg capsule (Vistaril) 50 mg PO DAILY see provider 08/09/22 [History Last Taken 08/08/22 22:00] Allergy/AdvReac Type Severity Reaction Status Date / Time Penicillins Allergy Intermediate hives Verified 08/09/22 21:45 Family History Father CAD (coronary artery disease) Brother Hypercholesterolemia Grandmother Diabetes Breast cancer Heart disease Hypertension Grandmother Breast cancer CML (chronic myelocytic leukemia) Cancer small cell lung CA Mother Colon cancer rectum Rectal cancer Grandfather Alzheimer's dementia Heart disease Surgical History History of removal of skin mole S/P laparoscopic procedure Social History adopted: No household members: spouse number of children: 1 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 Date Name GA/Weeks Outcome Route Bth Weight Gen Labor Lgth Anesthesia Del Locatn Provider FOB Unknown 10/2014 SAB spontaneous Unknown 01/09/2016 Ronda Figueroa live - full term vacuum 7# 8oz Female 15 hr epidural Pomerene Ramirez Scar Nixonsophia Delivery Date: Last Updated by: Coty Pritchard INDUSTRIAL AUTOMATION SPECIALIST, INDUSTRIAL AUTOMATION SPECIALIST-C no intervention Delivery Date: Last Updated by: Coty Pritchard NP, INDUSTRIAL AUTOMATION SPECIALIST-C IOL, episiotomy X 2; Pre E, on mag. Visit Details Expected Delivery Route/Plan Labor Preferences- CB/BF classes: [] labor support person: [] labor intervention preferences: [] pain management options preferred: [] cut cord/dad catch: [] : [] PP control planned: [] discussed possible routes of delivery and associated risks: [] special requests: [] Plans Covid status: discussed Flu vaccine: discussed Tdap vaccine: given Rhogam: na LARC form signed: movement and labor precautions reviewed. Problem list reviewed and updated with the most current plan of care details and appropriate orders placed. Relevant counseling for the gestational age provided. Continue routine care and follow up unless otherwise noted in visit notes/problem list details OB Flowsheet Initial Weight: Not Recorded Date <del>?</del> EGA Weight BP Urine Prot <del>?</del> Glucose FHR FuHt Pres Dilation <del>?</del> Effaced St Visit Note 02/13/22 <del>?</del> 8w 3d 154 lb 130/80 <del>?</del> 160 <del>?</del> JV- CRL consistent with LMP 03/14/22 <del>?</del> 12w 4d 155 lb 114/60 Negative <del>?</del> Negative 150 <del>?</del> Sm- no vb cramping. 04/11/22 <del>?</del> 16w 4d 154 lb 6 oz 130/88 Negative <del>?</del> Negative 150 <del>?</del> JV- pt had covid last couple of weeks 05/16/22 <del>?</del> 21w 4d 160 lb 4 oz 118/79 Negative <del>?</del> Negative 145 <del>?</del> JV- no lof, v aginal bleeding, or cramping. had nose bleed recently and thinks may be from flonase. 06/13/22 <del>?</del> 25w 4d 163 lb 102/66 Negative <del>?</del> Negative 145 <del>?</del> JV- no lof, vaginal bleeding, or dec fm. no complaints 06/27/22 <del>?</del> 27w 4d 168 lb 132/79 Negative <del>?</del> Negative 145 28 <del>?</del> SM- no vb lof good fm no regular ctx cbc gct today 07/18/22 <del>?</del> 30w 4d 171 lb 122/81 <del>?</del> 140 31 <del>?</del> SM- no vb lof good fm no regular ctx 08/01/22 <del>?</del> 32w 4d 173 lb 2 oz Negative <del>?</del> Negative <del>?</del> Lc- pt presents with elevated BP at home, facial swelling, fuzzy brain and overall not well feeling. BP in office 162/102. with decreased FM. pt sent directly down to L&D for PEC work up, celestone and IV per Dr. Mcallister. pt transported in w/c down 08/15/22 <del>?</del> 34w 4d 176 lb 126/84 <del>?</del> 140 <del>?</del> SM- no vb lof good fm no regular ctx no ROBLEDO BV persistent bps nl to mildly elevated at home Assessment & Plan (1) Hypertension affecting in third trimester: COMMENT: PEC work up 08/01 delivery at 37. (2) Supervision of high risk , antepartum: COMMENT: PRR NATALEE:09/22/22, girl, Stella Dale PC:Ronda. Sp: Scar Figueroa (3) : QUALIFIERS: Weeks of gestation: 34 weeks Qualified Code(s): Z3A.34 - 34 weeks gestation of COMMENT: declined carrier and ntd screen. NIPT low risk (4) History of pre-eclampsia in prior , currently : COMMENT: On mag during labor. Pre E labs at [facility] negative. baby ASA. PLAN: Plan plan to send home with official 24 hr urine. continue close bp monitoring. follow up in office next year
[2022-08-17 15:39] LABS: 24HR. UA Prot. Total Volume 4670 mL
[2022-08-17 15:41] LABS: Urine Protein (24 Hour) < 6.0 mg/dL (<11.9)
== END 2022-08-15 19:05 | disposition home or self-care (01) ==
LOC: WPOUT 17:08 → WP 17:09
PROVIDERS: PCP Family Medicine; Referring Provider Obstetrics & Gynecology; Visit Provider Obstetrics & Gynecology
DX: O10.913 Unspecified pre-existing hypertension complicating pregnancy, third trimester (principal); Z3A.34 34 weeks gestation of pregnancy
CPT/HCPCS: 36415; 59025; 59050; 81050; 82565; 82570; 84156; 84450; 84460; 84550; 85027; 99218; G0378

== ENCOUNTER 2022-08-26 16:55 | Outpatient (CLI) | payer OTHER, SELFPAY ==
[2022-08-26 17:06] VITALS: BMI 28.0
[2022-08-26 17:21] VITALS: TEMP 37.2
[2022-08-26 17:22] VITALS: PULSE 106; TEMP 37.2; O2SAT 98
[2022-08-26 17:31] VITALS: BP 134/84; PULSE 102
[2022-08-26 17:55] VITALS: BP 132/81; PULSE 82
[2022-08-26 17:55] LABS: Hematocrit 36.8 % (37-47); Hemoglobin 11.6 g/dL (12.0-15.0); Mean Corp Hgb Conc 31.5 g/dL (32-36); Mean Corpuscular Hgb 29.8 pg (27.0-32.0); Mean Corpuscular Volume 94.6 fL (81-99); Mean Platelet Vol. 11.6 fl (6.2-12.0); Platelet Count 251 K/mm3 (150-450); RBC Distribution Width CV 14.2 % (11.6-14.6); RBC Distribution Width SD 48.4 fl (35.1-43.9); Red Blood Count 3.89 M/mm3 (4.2-5.4); White Blood Count 9.9 K/mm3 (4.4-11.0)
[2022-08-26 18:12] LABS: AST(SGOT) 14 U/L (15-37); Alanine Aminotransfer ALT/SGPT 17 U/L (13-56); Creatinine, Serum 0.67 mg/dL (0.55-1.02); EST Glomerular Filtration Rate 106 mL/min (>60); Est Glom Filt Rate - Afr Amer 129 mL/min (>60); Estimated Creatinine Clearance 115.05 ml/min; Uric Acid 3.9 mg/dL (2.6-6.0)
[2022-08-26 18:39] LABS: Protein, Urine (Random) < 6.0 mg/dL (<11.9)
--- NOTE | 2022-08-30 14:09 | OB.TRI.PN_ITS ---
Progress Notes Date of Service: 08/26/22 Progress Note: Patient presents for triage evaluation secondary to FHT:140 Moderate variability reactive no decelerations category I tracing [place]: no regular Contractions Assessment and plan: elevated bp, all normal here and no clonus, normal labs Reactive NST, reassuring maternal and status patient discharged to home to follow-up as scheduled. See problem list details for additional plan information. Laboratory Studies: Laboratory Tests 08/26/22 08/26/22 08/26/22 Range/Units Unknown 17:45 17:45 WBC (4.4-11.0) K/mm3 RBC (4.2-5.4) M/mm3 Hgb (12.0-15.0) g/dL Hct (37-47) % MCV (81-99) fL MCH (27.0-32.0) pg MCHC (32-36) g/dL RDW Std Deviation (35.1-43.9) fl RDW Coeff of Brice (11.6-14.6) % Plt Count (150-450) K/mm3 MPV (6.2-12.0) fl Creatinine 0.67 (0.55-1.02) mg/dL Estim Creat Clear Calc 115.05 ml/min Est GFR (MDRD) Af Amer 129 (>60) mL/min Est GFR (MDRD) Non-Af 106 (>60) mL/min Uric Acid 3.9 (2.6-6.0) mg/dL AST 14 L (15-37) U/L ALT 17 (13-56) U/L U Random Total Protein < 6.0 Cancelled Urine Creatinine 18.00 Cancelled Protein/Creatinin Ratio TNP Cancelled 08/26/22 Range/Units 17:45 WBC 9.9 (4.4-11.0) K/mm3 RBC 3.89 L (4.2-5.4) M/mm3 Hgb 11.6 L (12.0-15.0) g/dL Hct 36.8 L (37-47) % MCV 94.6 (81-99) fL MCH 29.8 (27.0-32.0) pg MCHC 31.5 L (32-36) g/dL RDW Std Deviation 48.4 H (35.1-43.9) fl RDW Coeff of Brice 14.2 (11.6-14.6) % Plt Count 251 (150-450) K/mm3 MPV 11.6 (6.2-12.0) fl Creatinine (0.55-1.02) mg/dL Estim Creat Clear Calc ml/min Est GFR (MDRD) Af Amer (>60) mL/min Est GFR (MDRD) Non-Af (>60) mL/min Uric Acid (2.6-6.0) mg/dL AST (15-37) U/L ALT (13-56) U/L U Random Total Protein Urine Creatinine Protein/Creatinin Ratio Charges/Coding Procedures Urinary/Genital [id number]: [id number] non-stress test Interp
== END 2022-08-26 18:30 | disposition home or self-care (01) ==
LOC: WPOUT 17:02 → WP 17:03
PROVIDERS: PCP Family Medicine; Visit Provider Obstetrics & Gynecology
DX: O16.9 Unspecified maternal hypertension, unspecified trimester (principal); Z3A.00 Weeks of gestation of pregnancy not specified
CPT/HCPCS: 59025; 59050; 82565; 82570; 84156; 84450; 84460; 84550; 85027; 99218; G0378

== ENCOUNTER → 2022-08-29 | Outpatient (CLI) | payer OTHER, SELFPAY ==
--- NOTE | 2022-08-29 08:02 | US_ITS ---
STUDY: SECOND AND THIRD TRIMESTER OBSTETRICAL ULTRASOUND REASON FOR EXAM: Female, 36 years old growth LMP: 12/16/2021. TECHNIQUE: Transabdominal TECHNICAL QUALITY: Adequate. PRIOR ULTRASOUND: Comparison is made with prior study 08/01/2022. FINDINGS: There is a single intrauterine fetus. The fetus is in a cephalic presentation. There is demonstrated cardiac activity with a heart rate of 140 bpm. There is a normal amniotic fluid volume. The largest amniotic fluid pocket measures 4.7 cm. The amniotic fluid index (ANNIKA) is 13.0 cm. The placenta is anterior in location and is not low lying. There are Grade 2 placental changes. The cervix was not measured. The head positioning. The adnexal regions are not visualized. BIOMETRY: BPD: 9.41 cm: 38 weeks, 2 days HC: 33.85 cm: 38 weeks, 6 days AC: 35.36 cm: 39 weeks, 2 days FL: 7.09 cm: 36 weeks, 2 days CI: 83% FL/BPD: 75% FL/HC: FL/AC: 20% HC/AC: 0.96 age by current US: 38 weeks, 0 days. NATALEE by current US: 09/12/2022. Estimated weight: 3521 grams, +/- 528 grams, 93 %. age by prior US: 38 weeks, 5 days. NATALEE by prior US: 09/07/2022. Age by LMP: 36 weeks, 4 days. NATALEE by LMP: 09/22/2022. US/OB Limited With Biometrics IMPRESSION: Single live intrauterine gestation with a mean gestational age of 38 weeks and 5 days. The measurements obtained today fall within the normal expected range. Electronically Signed: Sebastian Mcgrath MD at 12:12 EST ,
[2022-08-29 18:14] LABS: Group B Strep DNA By PCR Negative (Negative); Internal Control PASS; Probe Check PASS; Specimen Processing Control PASS
== END | disposition home or self-care (01) ==
PROVIDERS: PCP Family Medicine; Referring Provider Obstetrics & Gynecology; Visit Provider Obstetrics & Gynecology
DX: Z34.90 Encounter for supervision of normal pregnancy, unspecified, unspecified trimester (principal); Z3A.38 38 weeks gestation of pregnancy
CPT/HCPCS: 76816; 87081; 87653

== ENCOUNTER 2022-09-01 07:20 | Inpatient (IN) | payer OTHER, SELFPAY ==
[2022-09-01] VITALS (87 sets, daily range): BP systolic 108–155; BP diastolic 60–92; PULSE 58–122; TEMP 36.5–37.1; O2SAT 97–100; BMI 28.3
--- NOTE | 2022-09-01 07:56 | HP.PCM.OB_ITS ---
HPI - General General Date of Admission: 09/01/22 HPI Narrative BURTON BENJAMIN, is a 36 F who presents to L&D at 37+0 for mild PEC IOL. Pt developed mild PEC at 32 weeks, was managed in outpatient settings. BP never in severe ranges. denies robledo/RUQ/visual changes. otherwise uncomplicated. Maternal Data Information NATALEE Calculator Estimated Delivery Date Method Current WG Current Estimate 09/22/22 LMP (Certain) 37w 0d PFSH PFSH Medical History History of breast lump Home Medications fluticasone propionate 50 mcg/actuation nasal spray,suspension (Flonase Allergy Relief) 1 spray intranasal DAILY see provider 02/12/22 [History Last Taken 08/25/22 20:00] prenat.vits,layton,cte-ctdf-vgbuo 1 tab PO DAILY 02/12/22 [History Last Taken 08/26/22 08:30] hydroxyzine pamoate 50 mg capsule (Vistaril) 50 mg PO DAILY see provider 08/09/22 [History Last Taken 08/25/22 23:00] loratadine 10 mg tablet (Claritin) 10 mg PO DAILY 08/26/22 [History Last Taken 08/26/22 08:30] Allergy/AdvReac Type Severity Reaction Status Date / Time Penicillins Allergy Intermediate hives Verified 09/01/22 07:55 Family History Father CAD (coronary artery disease) Brother Hypercholesterolemia Grandmother Diabetes Breast cancer Heart disease Hypertension Grandmother Breast cancer CML (chronic myelocytic leukemia) Cancer small cell lung CA Mother Colon cancer rectum Rectal cancer Grandfather Alzheimer's dementia Heart disease Surgical History History of removal of skin mole S/P laparoscopic procedure Social History adopted: No household members: spouse number of children: 1 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 Date Name GA/Weeks Outcome Route Bth Weight Infant Gen Labor Lgth Anesthesia Del Locatn Provider FOB Unknown 10/2014 SAB spontaneous Unknown 01/09/2016 Ronda Figueroa live - full term vacuum 7# 8oz Female 15 hr epidural Pomerene Ramirez Scar Figueroa Delivery Date: Last Updated by: Coty Pritchard WAX BLENDER, WAX BLENDER-C no intervention Delivery Date: Last Updated by: Coty Pritchard WAX BLENDER, WAX BLENDER-C IOL, episiotomy X 2; Pre E, on mag. Visit Details Expected Delivery Route/Plan Labor Preferences- CB/BF classes: [] labor support person: [] labor intervention preferences: [] pain management options preferred: [] cut cord/dad catch: [] : [] PP control planned: [] discussed possible routes of delivery and associated risks: [] special requests: [] Plans Covid status: discussed Flu vaccine: discussed Tdap vaccine: given Rhogam: na LARC form signed: movement and labor precautions reviewed. Problem list reviewed and updated with the most current plan of care details and appropriate orders placed. Relevant counseling for the gestational age provided. Continue routine care and follow up unless otherwise noted in visit notes/problem list details OB Flowsheet Initial Weight: Not Recorded Date -?-?-?-?-?-?-?-?-?-?-?-?- EGA Weight BP Urine Prot -?-?-?-?-?-?-?-?-?-?-?-?- Glucose FHR FuHt Pres Dilation -?-?-?-?-?-?-?-?-?-?-?-?- Effaced St Visit Note 02/13/22 -?-?-?-?-?-?-?-?-?-?-?-?- 8w 3d 154 lb 130/80 -?-?-?-?-?-?-?-?-?-?-?-?- 160 -?-?-?-?-?-?-?-?-?-?-?-?- JV- CRL consiste nt with LMP 03/14/22 -?-?-?-?-?-?-?-?-?-?-?-?- 12w 4d 155 lb 114/60 Negative -?-?-?-?-?-?-?-?-?-?-?-?- Negative 150 -?-?-?-?-?-?-?-?-?-?-?-?- Sm- no vb crampi ng. 04/11/22 -?-?-?-?-?-?-?-?-?-?-?-?- 16w 4d 154 lb 6 oz 130/88 Nega tive -?-?-?-?-?-?-?-?-?-?-?-?- Negative 150 -?-?-?-?-?-?-?-?-?-?-?-?- JV- pt had covid last couple of weeks 05/16/22 -?-?-?-?-?-?-?-?-?-?-?-?- 21w 4d 160 lb 4 oz 118/79 Nega tive -?-?-?-?-?-?-?-?-?-?-?-?- Negative 145 -?-?-?-?-?-?-?-?-?-?-?-?- JV- no lof, v ag inal bleeding, or cramping. had nose bleed recently and thinks may be from flonase. 06/13/22 -?-?-?-?-?-?-?-?-?-?-?-?- 25w 4d 163 lb 102/66 Negative -?-?-?-?-?-?-?-?-?-?-?-?- Negative 145 -?-?-?-?-?-?-?-?-?-?-?-?- JV- no lof, vagi nal bleeding, or dec fm. no complaints 06/27/22 -?-?-?-?-?--?-?-?-?-?-?-?- 27w 4d 168 lb 132/79 Negative -?-?-?-?-?-?-?-?-?-?-?-?- Negative 145 28 -?-?-?-?-?-?-?-?-?-?-?-?- SM- no vb lof go od fm no regular ctx cbc gct today 07/18/22 -?-?-?-?-?-?-?-?-?-?-?-?- 30w 4d 171 lb 122/81 -?-?-?-?-?-?-?-?-?-?-?-?- 140 31 -?-?-?-?-?-?-?-?-?-?-?-?- SM- no vb lof go od fm no regular ctx 08/01/22 -?-?-?-?-?-?-?-?-?-?-?-?- 32w 4d 173 lb 2 oz Negative -?-?-?-?-?-?-?-?-?-?-?-?- Negative -?-?-?-?-?-?-?-?-?-?-?-?- Lc- pt presents with elevated BP at home, facial swelling, fuzzy brain and overall not well feeling. BP in office 162/102. with decreased FM. pt sent directly down to L&D for PEC work up, celestone and IV per Dr. Mcallister. pt transported in w/c down 08/15/22 -?-?-?-?-?-?-?-?-?-?-?-?- 34w 4d 176 lb 126/84 -?-?-?-?-?-?-?-?-?-?-?-?- 140 -?-?-?-?-?-?-?-?-?-?-?-?- SM- no vb lof go od fm no regular ctx no ROBLEDO BV persistent bps nl to mildly elevated at home 08/21/22 -?-?-?-?-?-?-?-?-?-?-?-?- 35w 3d 177 lb 6 oz 139/84 Nega tive -?-?-?-?-?-?-?-?-?-?-?-?- Negative 150 -?-?-?-?-?-?-?-?-?-?-?-?- MH-NST only reac tive. No vision changes or headache 08/29/22 -?-?-?-?-?-?-?-?-?-?-?-?- 36w 4d 181 lb 130/82 Negative -?-?-?-?-?-?-?-?-?-?-?-?- Negative 140 -?-?-?-?-?-?-?-?-?-?-?-?- SM- no vb lof go od fm no reuglar ctx no robledo bv NST FHR Rate Baby A Baseline: 155 Variability:: Moderate Accelerations:: 15 x 15 Decelerations:: None NST Reactive:: Yes FHR Category:: Category I ROS Cardiovascular Cardiovascular: Denies abdominal pain, chest pain, diaphoresis, dyspnea, edema or fatigue Respiratory/Chest Respiratory/Chest: Denies change in mental status, chest congestion, chest tightness, cough, shortness of breath at rest, shortness of breath with exertion, breast mass, breast pain, breast skin changes, breast swelling, change in breast shape or nipple discharge Gastrointestinal Gastrointestinal: Denies diarrhea, hemorrhoids, nausea, vomiting or weight changes Genitourinary Genitourinary: Denies abdominal discomfort, burning urination, change in libido, change in urinary stream, contractions, difficulty urinating, dysuria, movement, low back pain, urinary frequency, urinary hesitancy, urinary incontinence or urinary urgency Musculoskeletal Musculoskeletal: Reports none Integumentary Integumentary: Reports none Neurologic Neurologic: Reports none Psychiatric Psychiatric: Reports none Endocrine Endocrinology: Reports none Hematologic/Lymphatic Hematologic/Lymphatic: Reports none Allergic/Immunologic Allergic/Immunologic: Reports none Vital Signs Vital Signs Vital Signs: Weight Weight: 181 lb Body Mass Index (BMI) 28.3 Physical Exam Const alert, oriented x3 and no apparent distress General Appearance: cooperative, comfortable and well kempt; Negative for in distress Orientation / Consciousness: awake and oriented to person Exam Limitations: no limitations HEENT normocephalic Mouth: oral and palatal mucosa normal Neck full ROM and thyroid normal Chest inspection of chest normal Resp normal respiratory effort Effort and Inspection: able to speak in complete sentences and symmetric chest movement Cardio regular rate Peripheral Pulses: pulses 2+ throughout GI normal to inspection, nondistended, normoactive bowel sounds Inspection: gravid no CVA tenderness and appearance of the vagina normal External Female Exam: normal appearance of the urethra; Negative for external lesion OB / External & Speculum: external exam normal Manual OB Exam: estimated gestational size appropriate and presentation cephalic Uterus Palpation: Negative for uterus tender Extremity normal to inspection Skin no rashes or lesions noted Neuro deep tendon reflexes 2+ bilaterally and gait normal Motor Exam: strength 5/5 throughout and clonus absent Psych Activity / Motor Behavior: appropriate eye contact Speech: normal speech Labs Labs Labs: Blood Type A POSITIVE Antibody Screen NEGATIVE Hct 36.8 % (37-47) L Hgb 11.6 g/dL (12.0-15.0) L Pap Smear Negative Obstetrics US Syphilis Total Ab Non-reactive Rubella IgG Antibody Reactive (Nonreactive) Hep Bs Antigen Non-Reactive (Nonreactive) Chlamydia DNA ([place]) Negative (Negative) Neisseria gonorrhoeae DNA ([place]) Negative (Negative) HIV 1&2 Antibody Non-Reactive (Nonreactive) Glucose 1 Hr 50 gm 112 mg/dL (70-140) Group B Strep DNA Negative (Negative) Assessment & Plan (1) : QUALIFIERS: Weeks of gestation: 36 weeks Qualified Code(s): Z3A.36 - 36 weeks gestation of COMMENT: declined carrier and ntd screen. NIPT low risk (2) Supervision of high risk , antepartum: COMMENT: PRR NATALEE:09/22/22, girl, Stella Dale PC:Ronda. Sp: Scar Figueroa (3) Hypertension affecting in third trimester: COMMENT: PEC work up 08/01 delivery at 37. PLAN: Plan Patient presents for IOL at 37 weeks, mild PEC. Pain management: plans epidural. GBS negative Management of any complications: mild PEC I have reviewed the [facility] and made any clinically relevant updates. plan: hoffman bulb/pitocin induction -send updated PEC labs -routine admission orders Dr. Mcallister and I will co-manage patient due to mild PEC. She has been updated on pt admission and POC.
[2022-09-01] MEDS: Lactated Ringers 1,000 ML 50 ML IV (08:05)
[2022-09-01 08:27] LABS: Absolute Neutrophil Count 7.4 X10^3/uL (2.0-7.7); Basophil# 0.04 X10^3/uL; Basophil% 0.4 % (0-1); Eosinophil# 0.06 X10^3/uL; Eosinophils% 0.6 % (0-5); Hematocrit 33.7 % (37-47); Hemoglobin 11.7 g/dL (12.0-15.0); Lymphocyte % 19.7 % (19-41); Mean Corp Hgb Conc 34.7 g/dL (32-36); Mean Corpuscular Hgb 30.5 pg (27.0-32.0); Mean Corpuscular Volume 87.8 fL (81-99); Mean Platelet Vol. 10.8 fl (6.2-12.0); Monocyte# 0.63 X10^3/uL; Monocyte% 6.2 % (0-10); NRBC Flagged by Analyzer 0 % (0-5); Neutrophil # 7.37 X10^3/uL (2.7-7.7); Neutrophil % 72.4 % (47-70); Platelet Count 232 K/mm3 (150-450); RBC Distribution Width CV 14.1 % (11.6-14.6); RBC Distribution Width SD 44.5 fl (35.1-43.9); Red Blood Count 3.84 M/mm3 (4.2-5.4); White Blood Count 10.2 K/mm3 (4.4-11.0)
[2022-09-01] MEDS: Oxytocin 15 Units/NS 250ml 15 UNITS/250 ML IV.SOLN 2 UNITS IV (08:50)
[2022-09-01 08:51] LABS: ALB/GLOB Ratio 0.6 RATIO (0.9-2.4); AST(SGOT) 18 U/L (15-37); Alanine Aminotransfer ALT/SGPT 20 U/L (13-56); Albumin, Serum 2.5 g/dL (3.2-5.0); Alkaline Phosphatase 153 U/L (45-117); Anion Gap 11 (5-15); BUN 8 mg/dL (7-18); BUN/Creat Ratio 9.6 RATIO (10-20); Calcium,Total 9.2 mg/dL (8.5-10.1); Chloride 108 mmol/L (98-107); Creatinine, Serum 0.83 mg/dL (0.55-1.02); EST Glomerular Filtration Rate 83 mL/min (>60); Est Glom Filt Rate - Afr Amer 100 mL/min (>60); Estimated Creatinine Clearance 92.87 ml/min; Globulin 3.9 g/dL (2.2-4.2); Glucose 105 mg/dL (74-106); Potassium 3.2 mmol/L (3.5-5.1); Protein, Total 6.4 g/dL (6.4-8.2); Sodium Level 139 mmol/L (136-145)
[2022-09-01 08:58] LABS: AST(SGOT) 19 U/L (15-37); Alanine Aminotransfer ALT/SGPT 18 U/L (13-56); Creatinine, Serum 0.84 mg/dL (0.55-1.02); EST Glomerular Filtration Rate 82 mL/min (>60); Est Glom Filt Rate - Afr Amer 100 mL/min (>60); Estimated Creatinine Clearance 91.77 ml/min; Uric Acid 4.8 mg/dL (2.6-6.0)
[2022-09-01] MEDS: 0.9% Normal Saline Single 100 ML IV.SOLN. INTRA-UTER (09:29)
[2022-09-01 10:32] LABS: Protein, Urine (Random) < 6.0 mg/dL (<11.9)
[2022-09-01] MEDS: LACTATED RINGERS 500 ML 999 ML IV (14:30)
[2022-09-01] MEDS: fentaNYL-bupivacaine (epidural) 100 ML BAG EPIDURAL (15:11)
--- NOTE | 2022-09-01 17:27 | PN.OBGYN_ITS ---
Objective Data Objective Data Vital Signs: Vital Signs Temp Pulse BP Pulse Ox 97.7 F L 99 108/61 99 09/01/22 12:01 09/01/22 17:21 09/01/22 16:59 09/01/22 17:21 Weight: 181 lb Body Mass Index (BMI) 28.3 Intake & Output: Intake and Output for Last 24 Hours 08/30/22 08/31/22 09/01/22 23:59 23:59 23:59 Intake Total 533.60 / 533.60 Output Total 1700 / 1700 Balance -1166.40 / -1166.40 Lab / Micro Data Result Diagrams: 09/01/22 08:05 09/01/22 08:05 Labs: Laboratory Results - last 24 hr 09/01/22 08:05: WBC 10.2, RBC 3.84 L, Hgb 11.7 L, Hct 33.7 L, MCV 87.8, MCH 30.5 , MCHC 34.7, RDW Std Deviation 44.5 H, RDW Coeff of Brice 14.1, Plt Count 232, MPV 10.8, Immature Gran % (Auto) 0.700, Neut % (Auto) 72.4 H, Lymph % (Auto) 19.7, [place] % (Auto) 6.2, Eos % (Auto) 0.6, Baso % (Auto) 0.4, Absolute Neuts (auto) 7.4, Absolute Lymphs (auto) 2.00, Nucleated RBC % 0 09/01/22 08:05: Creatinine 0.84, Estim Creat Clear Calc 91.77, Est GFR (MDRD) Af Amer 100, Est GFR (MDRD) Non-Af 82, Uric Acid 4.8, AST 19, ALT 18 09/01/22 08:05: Blood Type A POSITIVE, Antibody Screen NEGATIVE 09/01/22 08:05: Sodium 139, Potassium 3.2 L, Chloride 108 H, Carbon Dioxide 20.0 L, Anion Gap 11, BUN 8, Creatinine 0.83, Estim Creat Clear Calc 92.87, Est GFR (MDRD) Af Amer 100, Est GFR (MDRD) Non-Af 83, BUN/Creatinine Ratio 9.6 L, Glucose 105, Calcium 9.2, Total Bilirubin 0.20, AST 18, ALT 20, Alkaline Phosphatase 153 H, Total Protein 6.4, Albumin 2.5 L, Globulin 3.9, Albumin/Globulin Ratio 0.6 L 09/01/22 09:45: U Random Total Protein < 6.0, Urine Creatinine 33.50, Protein/Creatinin Ratio TNP NST FHR Rate Baby A Baseline: 140 Variability:: Moderate Accelerations:: 15 x 15 Decelerations:: Variable NST Reactive:: Yes FHR Category:: Category I Uterine Activity:: q2-3minutes Assessment & Plan (1) Encounter for induction of labor: PLAN: hoffman bulb Pitocin per protocol (2) History of pre-eclampsia in prior , currently : COMMENT: On mag during labor. Pre E labs at [facility], P/C negative. baby ASA. (3) : QUALIFIERS: Weeks of gestation: 36 weeks Qualified Code(s): Z 3A.36 - 36 weeks gestation of COMMENT: declined carrier and ntd screen. NIPT low risk (4) Supervision of high risk , antepartum: COMMENT: PRR NATALEE:09/22/22, girl, Stella Dale PC:Ronda. Sp: Scar Figueroa (5) Hypertension affecting in third trimester: COMMENT: PEC work up 08/01 delivery at 37. PLAN: Plan 36 yo at 37.0w for IOL for mild pre-eclampsia. s/p hoffman bulb with pitocin. currently at 16mu. AROM for clear fluid, small amount. BP stable, PEC labs stable. current tracins FHT: Moderate variability reactive no decelerations category I tracing [place]: q2-3minutes Contractions SVE=50/-1 reviewed tracing abnormalities since last note:occ variables following AROM, sonia to 120, quick resolution to baseline. mod variability. A/P: active labor at term AROM- clear fluid. GBS negative continue Pitocin per protocol.
[2022-09-01] MEDS: Acetaminophen 500 MG Tablet PO (19:36)
--- NOTE | 2022-09-01 21:00 | EX.PCM.OBRPT ---
Assessment & Plan (1) Normal vaginal delivery: COMMENT: s/p IOL for mild PEC 37weeks. girl: ELOY Douglas (2) Pre-eclampsia: COMMENT: IOL at 37 weeks. mild PEC Maternal Data Information NATALEE Calculator Estimated Delivery Date Method Current WG Current Estimate 09/22/22 LMP (Certain) 37w 0d Vaginal Delivery Maternal Presentation Maternal Presentation: Medically Indicated Induction (mild pre-eclampsia) Type of Induction: Pitocin and Wilson Bulb Operative Information Date of Procedure: 09/01/22 Pre-Operative Diagnosis: IOL for PEC Post-Operative Diagnosis: Surgery / Procedure Performed: Spontaneous Vaginal Delivery Type of Anesthesia: Epidural Drain: Wilson to straight drain Estimated Blood Loss: 150 Time of Delivery: 20:36 Findings Description of Procedure: Patient began pushing and delivered the head in the MARIBEL presentation. The head was delivered atraumatically. The anterior and posterior shoulders delivered without complication followed by the rest of the and the infant was placed on the maternal abdomen. Delayed cord clamping was employed for approximately 60 seconds. Cord was clamped and cut and gentle traction was applied to the cord and the placenta delivered spontaneously immediately following it was noted to be intact with three-vessel cord. The perineum and vagina were inspected and small left labial laceration, repaired with 3.0 Vicryl in usual fashion. EBL was 150. Patient and infant tolerated delivery well.Pt and entered recovery phase in stable condition, bonding skin to skin. Presentation: Vertex Amniotic Membrane Rupture Type: Artificial Time of Membrane Rupture: ~1720 Amniotic Fluid Description: Clear Placental Delivery Description: Spontaneous Placenta Disposition: [facility] Cord Vessel Description: 3 Vessels Cord Entanglement: None A Gender: Female (1 minute): 8 (5 minute): 9 Delayed Cord Clamping: Yes Post Vaginal Delivery Episiotomy Description: None Laceration: Left Mediolateral (small mediolateral/labial extension, repaired) and Periurethral Extnsion/lac (non bleeding, not repaired) Complication Complications: None Multi Select Codes Urinary/Genital Urinary/Genital CPT Codes: 17075 Vaginal Delivery global pkg (ATTN erin: CNM delivery)
[2022-09-01] MEDS: 0.9% Saline Lock 10 ML Syringe IV (21:35)
[2022-09-01] MEDS: Oxytocin 10 UNITS/ML Vial IM (21:51)
[2022-09-02] MEDS: Naproxen 500 MG Tablet PO ×3 (02:18→20:31)
[2022-09-02 02:30] VITALS: BP 126/72; PULSE 68; RESP 18; TEMP 37.5; O2SAT 96
--- NOTE | 2022-09-02 02:38 | NURSING ---
repaired left labial tear
[2022-09-02 06:31] VITALS: BP 133/81; PULSE 72; RESP 16; TEMP 36.8; O2SAT 96
[2022-09-02] MEDS: FLU VACC QS2022-23(6MOS UP)/PF 60 MCG/0.5 ML SYRINGE IM (06:36)
--- NOTE | 2022-09-02 07:42 | PN.OBGYN_ITS ---
Subjective Subjective Patient doing well without complaints. Tolerating PO. Ambulating and voiding without difficulty. Feeding well. Denies chest pain, shortness of breath, calf pain/swelling, fevers, chills, lightheadedness. Objective Data Objective Data Vital Signs: Vital Signs Temp Pulse Resp BP Pulse Ox O2 Del Method 98.2 F 72 16 133/81 H 96 Room Air 09/02/22 06:31 09/02/22 06:31 09/02/22 06:31 09/02/22 06:31 09/02/22 06:31 09/02/22 06:31 Oxygen Delivery Method Room Air Weight: 181 lb Body Mass Index (BMI) 28.3 Intake & Output: Intake and Output for Last 24 Hours 08/31/22 09/01/22 09/02/22 23:59 23:59 23:59 Intake Total 1265.64 / 1265.64 Output Total 3400 / 3400 2300 / 2300 Balance -2134.36 / -2134.36 -2300 / -2300 Lab / Micro Data Result Diagrams: 09/01/22 08:05 09/01/22 08:05 Labs: Laboratory Results - last 24 hr 09/01/22 08:05: WBC 10.2, RBC 3.84 L, Hgb 11.7 L, Hct 33.7 L, MCV 87.8, MCH 30.5, MCHC 34.7, RDW Std Deviation 44.5 H, RDW Coeff of Brice 14.1, Plt Count 232, MPV 10.8, Immature Gran % (Auto) 0.700, Neut % (Auto) 72.4 H, Lymph % (Auto) 19.7, Burnett % (Auto) 6.2, Eos % (Auto) 0.6, Baso % (Auto) 0.4, Absolute Neuts (auto) 7.4, Absolute Lymphs (auto) 2.00, Nucleated RBC % 0 09/01/22 08:05: Creatinine 0.84, Estim Creat Clear Calc 91.77, Est GFR (MDRD) Af Amer 100, Est GFR (MDRD) Non-Af 82, Uric Acid 4.8, AST 19, ALT 18 09/01/22 08:05: Blood Type A POSITIVE, Antibody Screen NEGATIVE 09/01/22 08:05: Sodium 139, Potassium 3.2 L, Chloride 108 H, Carbon Dioxide 20.0 L, Anion Gap 11, BUN 8, Creatinine 0.83, Estim Creat Clear Calc 92.87, Est GFR (MDRD) Af Amer 100, Est GFR (MDRD) Non-Af 83, BUN/Creatinine Ratio 9.6 L, Glucos e 105, Calcium 9.2, Total Bilirubin 0.20, AST 18, ALT 20, Alkaline Phosphatase 153 H, Total Protein 6.4, Albumin 2.5 L, Globulin 3.9, Albumin/Globulin Ratio 0.6 L 09/01/22 09:45: U Random Total Protein < 6.0, Urine Creatinine 33.50, Protein/Creatinin Ratio TNP Physical Exam Const alert and oriented x3 HEENT normocephalic Eyes PERRL Neck full ROM Resp normal respiratory effort GI soft to palpation GI Narrative: FF below U Assessment & Plan (1) Normal vaginal delivery: COMMENT: s/p IOL for mild PEC 37weeks. girl: Stella, LC (2) Pre-eclampsia: COMMENT: IOL at 37 weeks. mild PEC PLAN: Plan s/p PPD #1 1. routine post delivery care 2. breast feeding- support given 3. rh positive 4. rubella immune 5. BP stable
[2022-09-02] MEDS: Acetaminophen 500 MG Tablet 1000 MG PO ×3 (08:01→23:28)
[2022-09-02 08:20] VITALS: BP 137/80; PULSE 80; RESP 16; TEMP 36.7
[2022-09-02] MEDS: Fluticasone 0.05% 1 SPRAY NASAL.SRY NASAL (10:25)
[2022-09-02] MEDS: Loratadine 10 MG Tablet PO (10:26)
[2022-09-02 12:41] VITALS: BP 132/89; PULSE 70; RESP 16; TEMP 36.6
[2022-09-02 21:23] VITALS: BP 141/85; PULSE 75; RESP 18; TEMP 36.5
[2022-09-03 02:17] VITALS: BP 150/86; PULSE 66; RESP 18; TEMP 36.6; O2SAT 96
[2022-09-03] MEDS: Naproxen 500 MG Tablet PO (04:33)
[2022-09-03 08:15] VITALS: BP 151/76; PULSE 62; RESP 18; TEMP 36.5; O2SAT 97
[2022-09-03 08:19] VITALS: BP 127/75
--- NOTE | 2022-09-03 08:36 | PCM.PN.OB ---
Subjective Subjective Patient doing well without complaints. Tolerating PO. Ambulating and voiding without difficulty. Feeding well. Denies chest pain, shortness of breath, calf pain/swelling, fevers, chills, lightheadedness. denies headaches, RUQ pain, visual changes. Objective Data Objective Data Vital Signs: Vital Signs Temp Pulse Resp BP Pulse Ox O2 Del Method 97.7 F L 62 18 127/75 H 97 Room Air 09/03/22 08:15 09/03/22 08:15 09/03/22 08:15 09/03/22 08:19 09/03/22 08:15 09/03/22 08:15 Oxygen Delivery Method Room Air Weight: 181 lb Body Mass Index (BMI) 28.3 Intake & Output: Intake and Output for Last 24 Hours 09/01/22 09/02/22 09/03/22 23:59 23:59 23:59 Intake Total 1265.64 / 1265.64 Output Total 3400 / 3400 2300 / 2300 Balance -2134.36 / -2134.36 -2300 / -2300 Lab / Micro Data Attestation: I reviewed the patient's lab results. Result Diagrams: 09/01/22 08:05 09/01/22 08:05 ROS Cardiovascular Cardiovascular: Denies abdominal pain, chest pain, diaphoresis, dyspnea, edema or fatigue Respiratory/Chest Respiratory/Chest: Denies change in mental status, chest congestion, chest tightness, cough, shortness of breath at rest, shortness of breath with exertion, breast mass, breast pain, breast skin changes, breast swelling, change in breast shape or nipple discharge Gastrointestinal Gastrointestinal: Denies diarrhea, hemorrhoids, nausea, vomiting or weight changes Genitourinary Genitourinary: Denies abdominal discomfort, burning urination, change in libido, change in urinary stream, contractions, difficulty urinating, dysuria, movement, low back pain, urinary frequency, urinary hesitancy, urinary incontinence or urinary urgency Musculoskeletal Musculoskeletal: Reports none Integumentary Integumentary: Reports none Neurologic Neurologic: Reports none Psychiatric Psychiatric: Reports none Endocrine Endocrinology: Reports none Hematologic/Lymphatic Hematologic/Lymphatic: Reports none Allergic/Immunologic Allergic/Immunologic: Reports none Physical Exam Const alert and oriented x3 HEENT normocephalic Eyes PERRL Neck full ROM Resp normal respiratory effort GI soft to palpation GI Narrative: FF below U Assessment & Plan (1) Pre-eclampsia: COMMENT: IOL at 37 weeks. mild PEC PLAN: (2) Vaginal delivery: COMMENT: s/p PPD # 2 1. routine post delivery care 2. breast feeding- support given 3. rh positive 4. rubella immune 5. d/c home today BP stable, will be monitored remotely.
--- NOTE | 2022-09-03 08:45 | DCINST_ITS ---
Discharge Instructions Diet Discharge Diet: No restrictions Activity Discharge Activity: May Not Drive and May Shower May resume sexual activity in: 6 weeks Weight Bearing Status: Full weight bearing Dressing / Incision Call your doctor if your incision/area has: Sudden Increased Bleeding, Increased Pain/ Swelling and Foul Smelling Discharge Call your doctor if you observe: Fever of 101 or Higher, Numbness or Tingling, Change in Color, Inability to urinate, Inability to have a bowel movement, Using more than 1 pad per hour, Shortness of breath, Dizziness, Fainting spells, Chest pain, Calf discomfort and Uncontrolled pain Follow Up Care Please Follow Up With: Monica Suero CNM When: 6 weeks , please call office to make an appointment. Congratulations on the of your baby QIAN!! Test Results: Test results from this visit will be discussed in further detail at your follow- up appointment, if applicable. Discharge Plan Admission Admit Date/Time: 09/01/22 07:20 Attending Provider: Monica Suero Primary Care Provider: Keanu Devries Discharge Orders/Prescriptions Prescriptions: No Action prenat.vits,layton,[id number] Tablet 1 tab PO DAILY fluticasone propionate [Flonase Allergy Relief] 50 mcg/actuation spray,suspension 1 spray intranasal DAILY Rx Instructions: administer into each nostril hydroxyzine pamoate [Vistaril] 50 mg Capsule 50 mg PO DAILY loratadine [Claritin] 10 mg Tablet 10 mg PO DAILY Referrals / Follow Up: Keanu Devries MD [Primary Care Provider] - Disposition Disposition (needs filled in before D/C Order can be placed): Home, Self Care
== END 2022-09-03 11:12 | disposition home or self-care (01) | DRG 807 ==
PROVIDERS: Obstetrics & Gynecology; Admitting Provider Registered Nurse; PCP Family Medicine; Visit Provider Registered Nurse
DX: O14.04 Mild to moderate pre-eclampsia, complicating childbirth (principal); Z37.0 Single live birth; O70.0 First degree perineal laceration during delivery; Z3A.37 37 weeks gestation of pregnancy
CPT/HCPCS: 59025; 59050; 80053; 82565; 82570; 84156; 84450; 84460; 84550; 85025; 86850; 86900; 86901; 99218; J7120; 90686; A4216; G0378

== ENCOUNTER 2022-09-07 18:37 | Inpatient (IN) | payer OTHER, SELFPAY ==
[2022-09-07] VITALS (21 sets, daily range): BP systolic 116–182; BP diastolic 79–100; PULSE 8–100; TEMP 36.8; O2SAT 85–99; BMI 26.2
[2022-09-07] MEDS: Lactated Ringers 1,000 ML 15 ML IV (18:45)
[2022-09-07] MEDS: NIFEdipine 10 MG Capsule PO (18:48)
[2022-09-07 19:07] LABS: Hematocrit 39.8 % (37-47); Hemoglobin 12.8 g/dL (12.0-15.0); Mean Corp Hgb Conc 32.2 g/dL (32-36); Mean Corpuscular Hgb 29.3 pg (27.0-32.0); Mean Corpuscular Volume 91.1 fL (81-99); Mean Platelet Vol. 10.1 fl (6.2-12.0); Platelet Count 313 K/mm3 (150-450); RBC Distribution Width SD 46.5 fl (35.1-43.9); Red Blood Count 4.37 M/mm3 (4.2-5.4); White Blood Count 7.4 K/mm3 (4.4-11.0)
[2022-09-07] MEDS: NIFEdipine 10 MG Capsule 20 MG PO (19:12)
[2022-09-07] MEDS: NIFEdipine 60 MG Tablet PO (20:08)
[2022-09-07] MEDS: 0.9% Saline Lock 10 ML Syringe IV (20:08)
[2022-09-07 20:16] LABS: Creatinine, Serum 0.65 mg/dL (0.55-1.02); EST Glomerular Filtration Rate 111 mL/min (>60); Est Glom Filt Rate - Afr Amer 134 mL/min (>60); Estimated Creatinine Clearance 118.59 ml/min
[2022-09-07 20:26] LABS: AST(SGOT) 31 U/L (15-37); Alanine Aminotransfer ALT/SGPT 66 U/L (13-56); Uric Acid 5.1 mg/dL (2.6-6.0)
--- NOTE | 2022-09-07 22:17 | OB.TRI.NOTE ---
HPI - General General Date of Admission: 09/07/22 HPI Narrative BURTON BENJAMIN, is a 36 F who presents 1 week PP with elevated bps and intermittent ROBLEDO, hasn't been on anti HTN medication, delivered 1 week ago for preeclampsia. now increasing to 160/110 at home. here 150/100 to 160/100. no clonus ROBLEDO improving. [facility] Medical History (Updated 09/07/22 @ 22:[address] Susi Mcallister MD) Gestational HTN History of breast lump Hypertension affecting in third trimester Infertility Normal vaginal delivery Pre-eclampsia Supervision of high risk , antepartum Home Medications fluticasone propionate 50 mcg/actuation nasal spray,suspension (Flonase Allergy Relief) 1 spray intranasal DAILY allergies 02/12/22 [History Last Taken 08/31/22 23:30] prenat.vits,layton,[id number] 1 tab PO DAILY 02/12/22 [History Last Taken 09/01/22 05:30] loratadine 10 mg tablet (Claritin) 10 mg PO DAILY 08/26/22 [History Last Taken 09/01/22 05:30] acetaminophen 500 mg tablet 1,000 mg PO Q6H PRN Headache 09/07/22 [History Last Taken 09/07/22 16:00] naproxen sodium 220 mg tablet (Aleve) 220 mg PO BID PRN Headache 09/07/22 [History Last Taken 09/07/22 16:00] Allergy/AdvReac Type Severity Reaction Status Date / Time Penicillins Allergy Intermediate hives Verified 09/01/22 07:55 Family History Father CAD (coronary artery disease) Brother Hypercholesterolemia Grandmother Diabetes Breast cancer Heart disease Hypertension Grandmother Breast cancer CML (chronic myelocytic leukemia) Cancer small cell lung CA Mother Colon cancer rectum Rectal cancer Grandfather Alzheimer's dementia Heart disease Surgical History History of gynecologic surgery History of removal of skin mole S/P laparoscopic procedure Social History adopted: No household members: spouse number of children: 1 current occupational status: employed 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 Date Name GA/Weeks Outcome Route Bth Weight Infant Gen Labor Lgth Anesthesia Del Locatn Provider FOB Unknown 10/2014 SAB spontaneous Unknown 01/09/2016 Ronda Figueroa live - full term vacuum 7# 8oz Female 15 hr epidural Pomerene Ramirez Scar Nixonsophia 09/01/22 Stella Dale 37 live - full term Female epidural [facility] Monica Suero Delivery Date: Last Updated by: Coty Pritchard CORPORATE QUALITY ENGINEER, CORPORATE QUALITY ENGINEER-C no intervention Delivery Date: Last Updated by: Coty Pritchard CORPORATE QUALITY ENGINEER, CORPORATE QUALITY ENGINEER-C IOL, episiotomy X 2; Pre E, on mag. Delivery Date: 09/01/22 Last Updated by: Martha Douglas see problem list for complications. IOL for PEC uncomplicated delivery. Physical Exam Const alert, oriented x3 and no apparent distress HEENT Head and Scalp: normocephalic and atraumatic Eyes EOMs intact bilaterally Neck full ROM and no lymphadenopathy Chest inspection of chest normal Resp normal respiratory effort Neuro no focal motor deficits Motor Exam: clonus absent Assessment & Plan (1) Pre-eclampsia: COMMENT: previous preeclampsia IOL at 37, readmit 1 week PP with mildly elevated liver enzyme, started on nifedipine. monitor overnight Charges/Coding Multi Select Codes Visit Charges Observation E&M Codin Initial observation care L3
[2022-09-07] MEDS: Acetaminophen 500 MG Tablet 1000 MG PO (22:39)
[2022-09-07] MEDS: Ketorolac 30 MG/ML Syringe IV (23:20)
[2022-09-08 00:56] VITALS: BP 97/65; PULSE 67; RESP 16; TEMP 36.6
[2022-09-08 02:16] VITALS: BP 99/71; PULSE 70
[2022-09-08 03:17] VITALS: BP 111/70; PULSE 59
[2022-09-08] MEDS: Acetaminophen 500 MG Tablet 1000 MG PO (05:39)
[2022-09-08 05:56] LABS: Absolute Lymphocyte Count 2.31 X10^3/uL (0.83-4.51); Absolute Neutrophil Count 4.2 X10^3/uL (2.0-7.7); Basophil# 0.08 X10^3/uL; Basophil% 1.1 % (0-1); Eosinophil# 0.15 X10^3/uL; Hematocrit 47.7 % (37-47); Hemoglobin 14.8 g/dL (12.0-15.0); Lymphocyte # 2.31 X10^3/ul (0.83-4.51); Lymphocyte % 31.5 % (19-41); Mean Corpuscular Hgb 28.9 pg (27.0-32.0); Mean Corpuscular Volume 93.2 fL (81-99); Mean Platelet Vol. 9.8 fl (6.2-12.0); Monocyte# 0.55 X10^3/uL; Monocyte% 7.5 % (0-10); NRBC Flagged by Analyzer 0 % (0-5); Neutrophil # 4.15 X10^3/uL (2.7-7.7); Neutrophil % 56.7 % (47-70); Platelet Count 362 K/mm3 (150-450); RBC Distribution Width CV 14.1 % (11.6-14.6); RBC Distribution Width SD 48.1 fl (35.1-43.9); Red Blood Count 5.12 M/mm3 (4.2-5.4); White Blood Count 7.3 K/mm3 (4.4-11.0)
[2022-09-08 06:26] LABS: Anion Gap 8 (5-15); BUN 13 mg/dL (7-18); BUN/Creat Ratio 20.1 RATIO (10-20); Calcium,Total 9.6 mg/dL (8.5-10.1); Chloride 106 mmol/L (98-107); Creatinine, Serum 0.65 mg/dL (0.55-1.02); EST Glomerular Filtration Rate 111 mL/min (>60); Est Glom Filt Rate - Afr Amer 134 mL/min (>60); Estimated Creatinine Clearance 118.59 ml/min; Glucose 93 mg/dL (74-106); Potassium 3.8 mmol/L (3.5-5.1); Sodium Level 139 mmol/L (136-145)
--- NOTE | 2022-09-08 07:24 | OB.TRI.NOTE ---
HPI - General General Date of Admission: 09/07/22 HPI Narrative BURTON BENJAMIN, is a 36 F who presents with elevated bps [facility] Medical History (Updated 09/08/22 @ 07:[address] Susi Mcallister MD) Gestational HTN History of breast lump Hypertension affecting in third trimester Infertility Normal vaginal delivery Pre-eclampsia Supervision of high risk , antepartum Home Medications fluticasone propionate 50 mcg/actuation nasal spray,suspension (Flonase Allergy Relief) 1 spray intranasal DAILY allergies 02/12/22 [History Last Taken 08/31/22 23:30] prenat.vits,layton,[id number] 1 tab PO DAILY 02/12/22 [History Last Taken 09/01/22 05:30] loratadine 10 mg tablet (Claritin) 10 mg PO DAILY 08/26/22 [History Last Taken 09/01/22 05:30] acetaminophen 500 mg tablet 1,000 mg PO Q6H PRN Headache 09/07/22 [History Last Taken 09/07/22 16:00] naproxen sodium 220 mg tablet (Aleve) 220 mg PO BID PRN Headache 09/07/22 [History Last Taken 09/07/22 16:00] Allergy/AdvReac Type Severity Reaction Status Date / Time Penicillins Allergy Intermediate hives Verified 09/01/22 07:55 Family History Father CAD (coronary artery disease) Brother Hypercholesterolemia Grandmother Diabetes Breast cancer Heart disease Hypertension Grandmother Breast cancer CML (chronic myelocytic leukemia) Cancer small cell lung CA Mother Colon cancer rectum Rectal cancer Grandfather Alzheimer's dementia Heart disease Surgical History History of gynecologic surgery History of removal of skin mole S/P laparoscopic procedure Social History adopted: No household members: spouse number of children: 1 current occupational status: employed 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 Date Name GA/Weeks Outcome Route Bth Weight Infant Gen Labor Lgth Anesthesia Del Locatn Provider FOB Unknown 10/2014 SAB spontaneous Unknown 01/09/2016 Ronda Figueroa live - full term vacuum 7# 8oz Female 15 hr epidural Pomerene Ramirez Scar Figueroa 09/01/22 Stella Caldera live - full term Female epidural [facility] Monica Suero Delivery Date: Last Updated by: Coty Pritchard AIRLINE RADIO OPERATOR, AIRLINE RADIO OPERATOR-C no intervention Delivery Date: Last Updated by: Coyt Pritchard AIRLINE RADIO OPERATOR, AIRLINE RADIO OPERATOR-C IOL, episiotomy X 2; Pre E, on mag. Delivery Date: 09/01/22 Last Updated by: Martha Douglas see problem list for complications. IOL for PEC uncomplicated delivery. Physical Exam Const alert, oriented x3 and no apparent distress HEENT Head and Scalp: normocephalic and atraumatic Eyes EOMs intact bilaterally Neck full ROM and no lymphadenopathy Chest inspection of chest normal Resp normal respiratory effort GI GI Narrative: gravid, abdomen nontender, AGA Neuro no focal motor deficits Motor Exam: clonus absent Assessment & Plan (1) Vaginal delivery: (2) Pre-eclampsia: COMMENT: previous preeclampsia IOL at 37, readmit 1 week PP with mildly elevated liver enzyme, started on nifedipine. monitored overnight bps controlled kelley resolved dc home today on procardia fu in office end of week. repeat labs end of week also. Charges/Coding Multi Select Codes Visit Charges Observation E&M Codin Observation care discharge
[2022-09-08 07:34] LABS: AST(SGOT) 33 U/L (15-37); Alanine Aminotransfer ALT/SGPT 73 U/L (13-56)
[2022-09-08 07:58] VITALS: BP 116/74; PULSE 110; PULSE 113; TEMP 36.6; O2SAT 98
[2022-09-08] MEDS: Naproxen 500 MG Tablet PO (08:27)
[2022-09-08 09:18] VITALS: BP 127/67; PULSE 104; PULSE 108; RESP 18; TEMP 36.3; O2SAT 97
--- NOTE | 2022-09-08 09:24 | NURSING ---
Patient denies signs of depression or baby blues. Reports that she is feeling good.
--- NOTE | 2022-09-08 09:53 | NURSING ---
Patient's infant's cuddle tag removed - number 13.
== END 2022-09-08 09:55 | disposition home or self-care (01) | DRG 776 ==
LOC: WPOUT 22:58 → WP 22:58
PROVIDERS: Admitting Provider Obstetrics & Gynecology; PCP Family Medicine; Visit Provider Obstetrics & Gynecology
DX: O14.95 Unspecified pre-eclampsia, complicating the puerperium (principal); Z79.899 Other long term (current) drug therapy
CPT/HCPCS: 80048; 82565; 84450; 84460; 84550; 85025; 85027; J7120; A4216

== ENCOUNTER → 2022-09-12 | Outpatient (CLI) | payer OTHER, SELFPAY ==
[2022-09-12 11:38] LABS: Absolute Lymphocyte Count 1.95 X10^3/uL (0.83-4.51); Absolute Neutrophil Count 3.5 X10^3/uL (2.0-7.7); Basophil# 0.04 X10^3/uL; Basophil% 0.7 % (0-1); Eosinophil# 0.12 X10^3/uL; Hemoglobin 13.7 g/dL (12.0-15.0); Lymphocyte # 1.95 X10^3/ul (0.83-4.51); Lymphocyte % 32.3 % (19-41); Mean Corp Hgb Conc 31.9 g/dL (32-36); Mean Corpuscular Volume 91.1 fL (81-99); Mean Platelet Vol. 9.3 fl (6.2-12.0); Monocyte# 0.38 X10^3/uL; Monocyte% 6.3 % (0-10); NRBC Flagged by Analyzer 0 % (0-5); Neutrophil # 3.53 X10^3/uL (2.7-7.7); Neutrophil % 58.4 % (47-70); Platelet Count 385 K/mm3 (150-450); Red Blood Count 4.72 M/mm3 (4.2-5.4)
[2022-09-12 12:26] LABS: ALB/GLOB Ratio 0.8 RATIO (0.9-2.4); AST(SGOT) 25 U/L (15-37); Alanine Aminotransfer ALT/SGPT 47 U/L (13-56); Albumin, Serum 3.7 g/dL (3.2-5.0); Alkaline Phosphatase 111 U/L (45-117); Anion Gap 5 (5-15); BUN 14 mg/dL (7-18); BUN/Creat Ratio 17.2 RATIO (10-20); Calcium,Total 9.8 mg/dL (8.5-10.1); Chloride 105 mmol/L (98-107); Creatinine, Serum 0.82 mg/dL (0.55-1.02); EST Glomerular Filtration Rate 85 mL/min (>60); Est Glom Filt Rate - Afr Amer 103 mL/min (>60); Globulin 4.4 g/dL (2.2-4.2); Glucose 93 mg/dL (74-106); Potassium 3.9 mmol/L (3.5-5.1); Protein, Total 8.1 g/dL (6.4-8.2); Sodium Level 138 mmol/L (136-145)
== END | disposition home or self-care (01) ==
LOC: PAVLAB 11:24
PROVIDERS: PCP Family Medicine; Referring Provider Obstetrics & Gynecology; Visit Provider Obstetrics & Gynecology
DX: O14.90 Unspecified pre-eclampsia, unspecified trimester (principal); Z3A.00 Weeks of gestation of pregnancy not specified
CPT/HCPCS: 36415; 80053; 85025